=== PATIENT | male | born 1960 | race Caucasian/White ===

== ENCOUNTER 2018-04-20 17:54 | Emergency (ER) | payer OTHER ==
[2018-04-20 18:01] VITALS: BP 120/69; PULSE 66; TEMP 98; BMI 28.8
[2018-04-20] MEDS ORDERED: KETOROLAC TROMETHAMINE 60 MG/2 ML VIAL IM ONE (18:45)
--- NOTE | 2018-04-20 18:50 | PDOC ---
History of Present Illness - General Chief Complaint: Injury Stated Complaint: BACK AND NECK PAIN Time Seen by Provider: 04/20/18 18:18 History Source: Patient Exam Limitations: No Limitations - History of Present Illness Initial Comments: 04/20/18 19:41 Patient is a 57-year-old male who presents emergency department today after slipping and falling in a gas station. Patient states that he landed on his right shoulder. He states that the pain is mostly in the shoulder. He also has pain in his low back. Denies numbness and tingling to the extremities, weakness , fevers, bladder bowel incontinence, saddle anesthesia.. Past History - Travel Traveled outside of the country in the last 30 days: No Close contact w/someone who was outside of country & ill: No - Past Medical History Allergies/Adverse Reactions: Allergies Allergy/AdvReac Type Severity Reaction Status Date / Time No Known Allergies Allergy Verified 04/20/18 18:02 Home Medications: Ambulatory Orders Ibuprofen 800 mg PO TID #30 tablet 04/20/18 COPD: No HTN: Yes Other medical history: GOUT - Surgical History Abdominal Surgery: Yes Appendectomy: Yes - Suicide/Smoking/Psychosocial Hx Smoking History: Never smoked Review of Systems - Review of Systems Able to Perform ROS?: Yes Comments:: 04/20/18 19:42 CONSTITUTIONAL: Absent: fever, chills, diaphoresis, generalized weakness, malaise, loss of appetite HEENT: Absent: rhinorrhea, nasal congestion, throat pain, throat swelling, difficulty swallowing, mouth swelling, ear pain, eye pain, visual Changes CARDIOVASCULAR: Absent: chest pain, loss of consciousness, palpitations, irregular heart rate, peripheral edema RESPIRATORY: Absent: cough, shortness of breath, dyspnea with exertion, orthopnea, wheezing, stridor, hemoptysis GASTROINTESTINAL: Absent: abdominal pain, abdominal distension, nausea, vomiting, diarrhea, constipation, melena, hematochezia GENITOURINARY: Absent: dysuria, frequency, urgency, hesitancy, hematuria, flank pain, genital pain MUSCULOSKELETAL: Absent: myalgia, arthralgia, joint swelling SKIN: Absent: rash, itching, pallor HEMATOLOGIC/IMMUNOLOGIC: Absent: easy bleeding, easy bruising, lymphadenopathy, frequent infections ENDOCRINE: Absent: unexplained weight gain, unexplained weight loss, heat intolerance, cold intolerance NEUROLOGIC: Absent: headache, focal weakness or paresthesias, dizziness, unsteady gait, seizure, mental status changes, bladder or bowel incontinence PSYCHIATRIC: Absent: anxiety, depression, suicidal or homicidal ideation, hallucinations. Is the patient limited Tristanian proficient: No *Physical Exam - Vital Signs Last Vital Signs Temp Pulse Resp BP Pulse Ox 98 F 66 18 120/69 99 04/20/18 17:58 04/20/18 17:58 04/20/18 17:58 04/20/18 17:58 04/20/18 17:58 - Physical Exam Comments: 04/20/18 19:42 GENERAL: Well developed, well nourished. Awake and alert. No acute distress. HEENT: Normocephalic, atraumatic. PERRLA, EOMI. No conjunctival pallor. Sclera are non- icteric. Moist mucous membranes. Oropharynx is clear. NECK: Supple. Full ROM. No JVD. Carotid pulses 2+ and symmetric, without bruits. No thyromegaly. No lymphadenopathy. CARDIOVASCULAR: Regular rate and rhythm. No murmurs, rubs, or gallops. Distal pulses are 2+ and symmetric. PULMONARY: No evidence of respiratory distress. Lungs clear to auscultation bilaterally. No wheezing, rales or rhonchi. ABDOMINAL: Soft. Non-tender. Non-distended. No rebound or guarding. No organomegaly. Normoactive bowel sounds. MUSCULOSKELETAL Normal range of motion at all joints. No bony deformities or tenderness. No CVA tenderness. EXTREMITIES: No cyanosis. No clubbing. No edema. No calf tenderness. SKIN: Warm and dry. Normal capillary refill. No rashes. No jaundice. NEUROLOGICAL: Alert, awake, appropriate. Cranial nerves 2-12 intact. No deficits to light touch and temperature in face, upper extremities and lower extremities. No motor deficits in the in face, upper extremities and lower extremities. Normoreflexic in the upper and lower extremities. Normal speech. Toes are down- going bilaterally. Gait is normal without ataxia. PSYCHIATRIC: Cooperative. Good eye contact. Appropriate mood and affect. Medical Decision Making - Medical Decision Making 04/20/18 19:42 Toradol given for pain X-ray of R shoulder is negative for fracture Repeat R shoulder exam without pain, full ROM Back pain resolved *DC/Admit/Observation/Transfer Diagnosis at time of Disposition: Shoulder pain, right Qualifiers: Chronicity: acute Qualified Code(s): M25.511 - Pain in right shoulder Low back pain Qualifiers: Chronicity: acute Back pain laterality: right Sciatica presence: without sciatica Qualified Code(s): M54.5 - Low back pain - Discharge Dispostion Disposition: HOME Condition at time of disposition: Stable Decision to Admit order: No - Referrals Referrals: Jaciel Lechuga MD [Primary Care Provider] - Lonny Martínez MD [Staff Physician] - - Patient Instructions Printed Discharge Instructions: DI for Shoulder Pain, DI for Low Back Pain Additional Instructions: You fell today. Your x-ray is negative for fracture You have shoulder pain and back pain Take Motrin 800mg every 8 hours as needed for pain You may apply ice to the area to help with pain If your symptoms do not get better in one week, follow up with orthopedics. A referral has been provided Return to the ED for any new or worsening symptoms Te eune jaqueline. Ruby rajwinder X son negativos por fractura Usted tiene dolor en el hombro y dolor de espalda [place] Motrin 800 mg cada 8 horas segn sea necesario para el dolor Puede aplicar hielo en el chas para ayudar con el dolor Si ruby sntomas no mejoran en francoise semana, magnolia un seguimiento con ortopedia. Francoise referencia vogel sido proporcionada Regrese al servicio de urgencias por cualquier sntoma nuevo o que empeore Print Language: [place] CITIZEN - Post Discharge Activity
[2018-04-20] MEDS ORDERED: KETOROLAC TROMETHAMINE 60 MG/2 ML VIAL ONE ×2 (18:55→18:57)
== END 2018-04-20 19:50 | disposition home or self-care (01) ==
LOC: JERFT 17:54
PROC: 3E0233Z Introduction of Anti-inflammatory into Muscle, Percutaneous Approach (ICD-10-PCS; principal; 2018-04-20)
DX: M25.511 Pain in right shoulder (principal); M54.5 Low back pain; W01.0XXA Fall on same level from slipping, tripping and stumbling without subsequent striking against object, initial encounter; Y93.89 Activity, other specified; Y92.524 Gas station as the place of occurrence of the external cause; Y99.8 Other external cause status
CPT/HCPCS: 73030-TC-RT-FY; 96372; 99281-25

== ENCOUNTER 2019-01-28 16:49 | Inpatient (IN) | payer OTHER ==
--- NOTE | 2019-01-28 17:06 | PDOC ---
Rapid Medical Evaluation Time Seen by Provider: 01/28/19 17:01 Medical Evaluation: Allergies Allergy/AdvReac Type Severity Reaction Status Date / Time No Known Allergies Allergy Verified 04/20/18 18:02 01/28/19 17:01 Patient c/o: left testicle pain, on bactrim since sunday but pain continues, no fver or urinary complaints, denies hx hernia or prostate d/o Patient on brief exam: tender enlarged left testicle and warm to touch, no penile discharge, uncircumsized Patient ordered for: septic w/u and u/s Patient to proceed to the ED Discharge Disposition - Diagnosis Testicle pain, Sepsis, Acute epididymitis, Orchitis of both testicles - Discharge Dispostion Condition at time of disposition: Stable - Referrals - Patient Instructions - Post Discharge Activity
[2019-01-28] MEDS ORDERED: ACETAMINOPHEN 1000 MG/100 ML VIAL (NON FORMULARY) IVPB ONE (17:09)
[2019-01-28] MEDS ORDERED: SODIUM CHLORIDE 1,000 ML IV STA (17:09)
[2019-01-28] MEDS ORDERED: ACETAMINOPHEN INJECTION 100 ML IVPB ONE (18:29)
[2019-01-28 19:16] LABS: VENOUS PC02 42.3 mmHg (41-51); VENOUS PH 7.41 (7.31-7.41)
[2019-01-28 19:48] LABS: BASO % 0.2 % (0-2.0); EOS % 0.1 % (0-4.5); HEMATOCRIT 38.6 % (35.4-49); LYMPH % 8.7 % (8-40); MCH 30.3 pg (25.7-33.7); MCHC 33.8 g/dl (32.0-35.9); MEAN CELL VOLUME 89.7 fl (80-96); MEAN PLT VOLUME 8.8 fl (7.5-11.1); MONO % 8.7 % (3.8-10.2); NEUT % 82.3 % (42.8-82.8); PLATELET COUNT 200 K/MM3 (134-434); RBC 4.31 M/mm3 (4.00-5.60); RDW 12.2 % (11.9-15.9); WHITE BLOOD COUNT 10.6 K/mm3 (4.0-10.0)
[2019-01-28 19:58] LABS: INR 1.1 (0.83-1.09)
[2019-01-28 20:00] LABS: ACTIVATED PTT 28.2 SECONDS (25.2-36.5); ALBUMIN 3.9 g/dl (3.4-5.0); BILIRUBIN,TOTAL 0.4 mg/dL (0.2-1); BLOOD UREA NITROGEN 22.4 mg/dL (7-18); CREATININE 1.8 mg/dL (0.55-1.3); POTASSIUM 3.8 mmol/L (3.5-5.1); TOT PROT 7.6 g/dl (6.4-8.2)
--- NOTE | 2019-01-28 20:03 | PDOC ---
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 On Sunday he had an appointment with his urologist and they examined his prostate and determined that his testicle is still inflamed and he is having fever. They gave him an injection in the buttock region "bc he had an enlarged testicle" but he does not know specifically what they gave him. The patient came to the hospital today bc he has the pain again and now he has a fever and feels thirsty. The patient states he feels nauseous but denies emesis. Denies dysuria, frequency, or urgency. PCP: Dr. Lechuga Urologist: Dr. Bland PSH: Appendectomy Social Hx: Denies smoking, drinking, or other substance usage. Allergies: NKA, NKDA Past History - Past Medical History Allergies/Adverse Reactions: Allergies Allergy/AdvReac Type Severity Reaction Status Date / Time No Known Allergies Allergy Verified 04/20/18 18:02 Home Medications: Ambulatory Orders NK [No Known Home Medication] 01/28/19 COPD: No HTN: Yes - Surgical History Abdominal Surgery: Yes Appendectomy: Yes - Immunization History Immunization Up to Date: No - Suicide/Smoking/Psychosocial Hx Smoking History: Never smoked Have you smoked in the past 12 months: No Information on smoking cessation initiated: No Hx Alcohol Use: No Drug/Substance Use Hx: No Review of Systems - Review of Systems Able to Perform ROS?: Yes Comments:: CONSTITUTIONAL: Present: Fever, chills Absent: no fatigue EYES: Absent: visual changes ENT: Absent: ear pain, no sore throat CARDIOVASCULAR: Absent: chest pain, no palpitations RESPIRATORY: Absent: cough, no SOB GI: Present: Abdominal pain, nausea Absent: no vomiting, no constipation, no diarrhea GENITOURINARY: Present: Testicular pain Absent: dysuria, no frequency, no hematuria MUSKULOSKELETAL: Absent: back pain, no arthralgia, no myalgia SKIN: Absent: rash NEURO: Absent: headache *Physical Exam - Vital Signs Last Vital Signs Temp Pulse Resp BP Pulse Ox 102.4 F H 104 H 16 128/68 97 01/28/19 17:02 01/28/19 17:02 01/28/19 17:02 01/28/19 17:02 01/28/19 17:02 - Physical Exam Comments: GENERAL: Well-appearing, well-nourished. No apparent distress. HEENT: Normocephalic, atraumatic. PERRL, EOM intact. CARDIOVASCULAR: Tachycardic rate. Normal S1, S2. Regular rhythm. PULMONARY: No evidence of respiratory distress. Lungs clear to auscultation bilaterally. No wheezing, rales or rhonchi. ABDOMEN: Soft, non-distended, non-tender. EXTREMITIES: Normal ROM in all four extremities. No gross deformities. SKIN: Warm, dry. No rash NEUROLOGICAL: No focal neurological deficits. Male Genitalia: positive: testicular tenderness (left), testicular mass, epididymus tender, other (+ Prehn sign. There is significant pain relief upon elevation of the testicle. ). negative: normal prostate (tender), discharge, inguinal hernia, hernia, CVAT, hematuria Rectal Exam: positive: normal exam, normal rectal tone, other (There is no crepitus or darkening of the perineum. ). negative: decreased tone, hemorrhoids ED Treatment Course - LABORATORY CBC & Chemistry Diagram: 01/28/19 18:25 01/28/19 18:25 - ADDITIONAL ORDERS Additional order review: Laboratory Results 01/28/19 01/28/19 01/28/19 18:55 18:55 18:25 PT with INR INR PTT (Actin FS) VBG pH 7.41 POC VBG pCO2 42.3 POC VBG pO2 21.0 L VBG HCO3 26.0 VBG O2 Sat (Pieter) 30.4 L VBG Base Excess 1.5 Sodium 137 Potassium 3.8 Chloride 103 Carbon Dioxide 27 Anion Gap 8 BUN 22.4 H Creatinine 1.8 H Est GFR (CKD-EPI)AfAm 47.37 Est GFR (CKD-EPI)NonAf 40.87 Random Glucose 114 H Lactic Acid 1.3 Calcium 9.0 Total Bilirubin 0.4 AST 14 L ALT 25 Alkaline Phosphatase 71 Total Protein 7.6 Albumin 3.9 01/28/19 18:25 PT with INR 13.00 INR 1.10 H PTT (Actin FS) 28.2 VBG pH POC VBG pCO2 POC VBG pO2 VBG HCO3 VBG O2 Sat (Pieter) VBG Base Excess Sodium Potassium Chloride Carbon Dioxide Anion Gap BUN Creatinine Est GFR (CKD-EPI)AfAm Est GFR (CKD-EPI)NonAf Random Glucose Lactic Acid Calcium Total Bilirubin AST ALT Alkaline Phosphatase Total Protein Albumin 01/28/19 18:25 RBC 4.31 MCV 89.7 MCHC 33.8 RDW 12.2 MPV 8.8 Neutrophils % 82.3 Lymphocytes % 8.7 Monocytes % 8.7 Eosinophils % 0.1 Basophils % 0.2 - RADIOLOGY Radiograph Interpretation: Testicular US: Scrotal ultrasound Clinical information: left testicular pain and edema The exam was performed utilizing grayscale and Doppler sonography. The testes appear unremarkable in overall size and echogenicity. The testes bilaterally demonstrate increased vascularity on Doppler imaging suggestive of acute orchitis. The left epididymis demonstrates increased vascularity as well as demonstrating mild diffuse enlargement suggestive of acute epididymitis. The right epididymis demonstrates no discrete abnormality. No Doppler evidence of testicular torsion, sensitivity 85%. Small to moderate bilateral hydroceles are seen. The left-sided hydrocele demonstrate several thickened internal septations. Bilateral cutaneous and subcutaneous edema is noted. Impression: Acute bilateral orchitis. Acute left epididymitis. Small to moderate bilateral hydroceles. Thickened internal septations are seen within the left- sided hydrocele. Bilateral cutaneous and subcutaneous edema. - Medications Given in the ED: ED Medications Discontinued Medications Generic Name Dose Route Start Last Admin Trade Name Freq PRN Reason Stop Dose Admin Acetaminophen 1,000 mg 01/28/19 17:09 01/28/19 19:20 Ofirmev Injection - IVPB 01/28/19 17:10 1,000 mg ONCE ONE Administration Sodium Chloride 1,000 mls @ 1,000 mls/hr 01/28/19 17:09 01/28/19 19:19 Normal Saline - IV 01/28/19 18:08 1,000 mls/hr ASDIR STA Administration Medical Decision Making - Medical Decision Making 58 yo m w a hx of HTN, HCL, gout and arthritis presents to the ER via private auto for testicular pain. On Sunday he had an appointment with his urologist and they examined his prostate and determined that his testicle is still inflamed and he is having fever. They gave him an injection in the buttock region "bc he had an enlarged testicle" but he does not know specifically what they gave him. The patient came to the hospital today bc he has the pain again and now he has a fever and feels thirsty. The patient states he feels nauseous but denies emesis. Denies dysuria, frequency, or urgency. Vital Signs Temp Pulse Resp BP Pulse Ox 102.4 F H 104 H 16 128/68 97 01/28/19 17:02 01/28/19 17:02 01/28/19 17:02 01/28/19 17:02 01/28/19 17:02 DDx IBNLT: UTI/Pylo, epidydymitis, prostatitis, orchitis Plan: Labs, Urine, analgesia, Testicular US, Urology consult, re-assess. + Prehn sign - significant relief upon testicular elevation. - Patient likely has a bad case of epidydymitis/epidydymo-orchitis. I spoke with Dr. Bland and he is concerned that the patient might have a testicular abscess and wants the patient admitted to the hospital for further care and management of this patient's testicular issues. Dr. Bland says that the medications he was given in the office are not appropriately working and the patient needs to come into the hospital to have his testicular infection taken care of. Testicular US shows bilateral orchitis as well as left sided epidydymitis. - Vanc/Zosyn started for empiric coverage. - Morphine given for pain control. Spoke with hospitalist who accepted patient for admission. *DC/Admit/Observation/Transfer Diagnosis at time of Disposition: Testicle pain, Sepsis, Acute epididymitis, Orchitis of both testicles - Discharge Dispostion Condition at time of disposition: Stable Decision to Admit order: Yes - Referrals - Patient Instructions - Post Discharge Activity
[2019-01-28 20:27] LABS: EPI CELLS 0.5 /HPF (0-5/HPF); HYALINE CASTS 1 /lpf (0-8); URINE APPEARANCE CLEAR; URINE BACTERIA 3.9 /hpf (NEGATIVE); URINE BILIRUBIN NEGATIVE (NEGATIVE); URINE COLOR YELLOW; URINE GLUCOSE (UA) NEGATIVE (NEGATIVE); URINE KETONE TRACE (NEGATIVE); URINE LEUK ESTERASE TRACE (NEGATIVE); URINE NITRITE NEGATIVE (NEGATIVE); URINE PROTEIN NEGATIVE (NEGATIVE); URINE RBC 1 /hpf (0-4); URINE UROBILINOGEN 0.2 mg/dL (0.2-1.0); URINE WBC 1 /hpf (0-5)
[2019-01-28] MEDS ORDERED: SODIUM CHLORIDE 0.9% 500 ML INFUS.BAG IV ONE (20:43)
[2019-01-28] MEDS ORDERED: morphine CARPU-JECT 4 MG/1 ML DISP.SYRIN IVPUSH ONE (21:39)
[2019-01-28] MEDS ORDERED: VANCOMYCIN 1,000 MG in DEXTROSE 5%-WATER - 250 ML IVPB ONE (21:39)
[2019-01-28] MEDS ORDERED: PIPERACILLIN/TAZOB 4.5 GM 4.5 GM in DEXTROSE 5%-WATER 100 ML IVPB ONE (21:40)
--- NOTE | 2019-01-28 22:28 | PDOC ---
Documentation entered by Sage Guo SCRIBE, acting as scribe for Jamila Ireland DO. Jamila Ireland DO: This documentation has been prepared by the Brant lawson Daniel, SCRIBE, under my direction and personally reviewed by me in its entirety. I confirm that the documentation accurately reflects all work , treatment, procedures, and medical decision making performed by me. Attending Attestation - Resident Resident Name: Darren Goldstein - ED Attending Attestation I have performed the following: I have examined & evaluated the patient, The case was reviewed & discussed with the resident, I agree w/resident's findings & plan - HPI HPI: 01/28/19 20:40 The patient is a 58 year old male with a past medical history of HTN, HLD, gout , and arthritis here today for evaluation of testicular pain. The patient reports that he saw his urologist last sunday (01/24/19) and received bactrim for an infection of his testicles and also received a shot but is unable to recall what shot it was. He is here today for testicular pain and fever. Patient denies headache, lightheadedness. Denies chills. Denies chest pain, shortness of breath. Denies nausea, vomiting, diarrhea, abdominal pain. Allergies: NKA PCP: Jaciel Lechuga Urologist: Jazzy Bland - Physicial Exam PE: 01/28/19 20:40 Agree with the resident's physical exam. - Medical Decision Making 01/28/19 22:26 58-year-old male with left testicular pain and swelling Ultrasound consistent with bilateral orchitis and epididymitis Case discussed with urology by the emergency department resident Fredis and vancomycin initiated in the emergency department Patient admitted to medical service Urology will see the patient in the morning He is currently well-appearing, alert, morphine given for pain
[2019-01-28] MEDS ORDERED: PIPERACILLIN/TAZOB 4.5 GM 4.5 GM/100 ML BAG IVPB ONE (22:29)
[2019-01-28] MEDS ORDERED: morphine SULFATE 4 MG/ML VIAL ONE (22:29)
[2019-01-28] MEDS ORDERED: VANCOMYCIN 1 GRAM (PRE-DOCKED) 1,000 MG/250 ML BAG IVPB ONE (22:29)
--- NOTE | 2019-01-28 23:50 | HP ---
Admitting History and Physical - Primary Care Physician PCP: Toño Tripp - Admission Chief Complaint: Dislodged Stanley Catheter, AMS - Smoking History Smoking history: Never smoked Have you smoked in the past 12 months: No - Alcohol/Substance Use Hx Alcohol Use: No Home Medications - Allergies Allergies/Adverse Reactions: Allergies Allergy/AdvReac Type Severity Reaction Status Date / Time No Known Allergies Allergy Verified 04/20/18 18:02 - Home Medications Home Medications: Ambulatory Orders NK [No Known Home Medication] 01/28/19 Physical Examination Vital Signs: Vital Signs Temperature 102.4 F H 01/28/19 17:02 Pulse Rate 104 H 01/28/19 17:02 Respiratory Rate 16 01/28/19 17:02 Blood Pressure 128/68 01/28/19 17:02 O2 Sat by Pulse Oximetry (%) 97 01/28/19 17:02 Labs: CBC, BMP 01/28/19 18:25 01/28/19 18:25
--- NOTE | 2019-01-28 23:57 | PN ---
Progress Note (short form) - Note Progress Note: UROLOGY NOTE. CONSULT DICTATED.
[2019-01-29] MEDS ORDERED: MORPHINE SULFATE 2 MG/ML VIAL IVPUSH PRN (00:04)
--- NOTE | 2019-01-29 00:05 | HP ---
Admitting History and Physical - Primary Care Physician PCP: Jaciel Lechuga S - Admission Chief Complaint: Left testicular pain and fever History of Present Illness: 58 year old M with no past medical history present to ED for evaluation of Left testicular pain and fevers x 1 week. Mr. Portillo reports symptoms initially started out as mild discomfort in left testicle for which he saw urology. He was treated with BActrim, but continued to have progression of symptoms to include, worsening pain and swelling to left testicle, and fevers. He denies dysuria, incontinence, malodorous or discolored urine. He followed up with his urologist today due to worsening sx and was given " an injection" in the office. Pt returned home and continued to experience fevers, so he decided to present to ED for evaluation. In ED vitals: Temp 102.4, HR 104, BP 128/68, RR 16, O2 sat 97% WBC 10.9, Scr 1.8, trace ketones on urinalysis pt underwent scrotal US which revealed b/l Orchitis and left Epididymitis, small to moderate hydroceles, b/l SC edema. 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 Other Social History: Born in [facility] Home Medications - Allergies Allergies/Adverse Reactions: Allergies Allergy/AdvReac Type Severity Reaction Status Date / Time No Known Allergies Allergy Verified 04/20/18 18:02 - Home Medications Home Medications: Ambulatory Orders NK [No Known Home Medication] 01/28/19 Family Disease History - Family Disease History Family Disease History: Other: Father (alive(96) well), Mother (alive (80) HTN) , Brother (alive (60) HTN), Sister (alive (45) DMII) Review of Systems - Review of Systems Constitutional: reports: Fever Eyes: reports: No Symptoms HENT: reports: No Symptoms Neck: reports: No Symptoms Cardiovascular: reports: No Symptoms Respiratory: reports: No Symptoms Gastrointestinal: reports: No Symptoms Genitourinary: reports: Pain, Testicular Mass, Testicular Pain, Testicular Swelling Breasts: reports: No Symptoms Reported Musculoskeletal: reports: No Symptoms Integumentary: reports: No Symptoms Neurological: reports: No Symptoms Endocrine: reports: No Symptoms Hematology/Lymphatic: reports: No Symptoms Psychiatric: reports: No Symptoms Physical Examination Vital Signs: Vital Signs Temperature 100.0 F H 01/28/19 23:51 Pulse Rate 87 01/28/19 23:51 Respiratory Rate 16 01/28/19 17:02 Blood Pressure 94/59 L 01/28/19 23:51 O2 Sat by Pulse Oximetry (%) 98 01/28/19 23:51 Constitutional: Yes: Well Nourished, No Distress, Calm, Other (poor dentition) Eyes: Yes: Conjunctiva Clear, PERRL HENT: Yes: Atraumatic, Normocephalic Neck: Yes: Supple Cardiovascular: Yes: Regular Rate and Rhythm Respiratory: Yes: Regular, CTA Bilaterally Gastrointestinal: Yes: Normal Bowel Sounds, Soft, Abdomen, Obese ...Rectal Exam: Yes: WNL Renal/: Yes: Scrotal Edema (Left, + epidydimal tenderness, palpable abscess) Musculoskeletal: Yes: WNL Extremities: Yes: WNL Edema: No Peripheral Pulses WNL: Yes Peripheral Pulses: Left Radial: 2+, Right Radial: 2+, Left Doralis Pedis: 2+, Right Dorsalis Pedis: 2+ Integumentary: Yes: WNL Neurological: Yes: Alert, Oriented ...Motor Strength: WNL Psychiatric: Yes: Alert, Oriented Labs: CBC, BMP 01/28/19 18:25 01/28/19 18:25 Imaging - Results Ultrasound: Report Reviewed (Scrotal ultrasound 01/28/2019 Impression: Acute bilateral orchitis. Acute left epididymitis. Small to moderate bilateral hydroceles. Thickened internal septations are seen within the left- sided hydrocele. Bilateral cutaneous and subcutaneous edema. Reported By: Se Bains MD 01/28/19 [id number]) Problem List - Problems (1) Prophylactic measure Assessment/Plan: Ambulate as tolerated OOB to chair senna/colace bowel regimen Code(s): Z29.9 - ENCOUNTER FOR PROPHYLACTIC MEASURES, UNSPECIFIED (2) Acute epididymitis Assessment/Plan: pt dosed vanco/zosyn in ED. Start rocephin and doxycycline in AM trend WBC and temp curve IV hydration APAP PRN fever Morphine PRN acute pain f/u results of chlamydia/gonorrhea/trich/ HIV and urine/blood cultures consider ID consult in AM Code(s): N45.1 - EPIDIDYMITIS Assessment/Plan Code status: Full Visit type - Emergency Visit Emergency Visit: Yes ED Registration Date: 01/28/19 Care time: The patient presented to the Emergency Department on the above date and was hospitalized for further evaluation of their emergent condition. - New Patient This patient is new to me today: Yes Date on this admission: 01/29/19 - Critical Care Critical Care patient: No
[2019-01-29] MEDS ORDERED: DOCUSATE SODIUM 100 MG CAPSULE (FP) PO PRN (00:10)
[2019-01-29] MEDS ORDERED: SENNOSIDES 8.6MG TABLET (FP) PO PRN (00:10)
[2019-01-29 01:25] LABS: EPI CELLS 0.2 /HPF (0-5/HPF); HYALINE CASTS 1 /lpf (0-8); URINE APPEARANCE CLEAR; URINE BILIRUBIN NEGATIVE (NEGATIVE); URINE COLOR YELLOW; URINE GLUCOSE (UA) NEGATIVE (NEGATIVE); URINE KETONE NEGATIVE (NEGATIVE); URINE LEUK ESTERASE TRACE (NEGATIVE); URINE NITRITE NEGATIVE (NEGATIVE); URINE PROTEIN NEGATIVE (NEGATIVE); URINE RBC 0 /hpf (0-4); URINE UROBILINOGEN 0.2 mg/dL (0.2-1.0); URINE WBC 1 /hpf (0-5)
[2019-01-29] MEDS: LACTATED RINGERS SOLUTION 1,000 ML IV SCH ×2 (02:02→14:38)
[2019-01-29] MEDS ORDERED: ACETAMINOPHEN 325 MG TABLET (FP) ONE (04:44)
[2019-01-29] MEDS: ACETAMINOPHEN 325 MG TABLET (FP) PO PRN ×3 (04:55→23:33)
--- NOTE | 2019-01-29 08:05 | EKG ---
Test Reason : Blood Pressure : / mmHG Vent. Rate : 100 BPM Atrial Rate : 100 BPM P-R Int : 140 ms QRS Dur : 098 ms QT Int : 342 ms P-R-T Axes : 059 -07 036 degrees QTc Int : 441 ms SINUS RHYTHM WITH PREMATURE ATRIAL COMPLEXES INCOMPLETE RIGHT BUNDLE BRANCH BLOCK BORDERLINE ECG WHEN COMPARED WITH ECG OF 27-JUL-2010 12:21, PREMATURE ATRIAL COMPLEXES ARE NOW PRESENT VENT. RATE HAS INCREASED BY 41 BPM Confirmed by CHANG ZAVALA MD ([id number]) on 01/29/2019 8:05:32 AM Referred By: Confirmed By:CHANG ZAVALA MD
[2019-01-29] MEDS ORDERED: CEFTRIAXONE 1 GM/50 ML BAG ONE (09:04)
[2019-01-29] MEDS: DOXYCYCLINE HYCLATE 100 MG CAPSULE PO SCH ×2 (09:50→17:44)
[2019-01-29] MEDS ORDERED: CEFTRIAXONE 1 GM in DEXTROSE 5%-WATER - 50 ML IVPB SCH (10:00)
[2019-01-29 12:59] VITALS: BMI 23.4
--- NOTE | 2019-01-29 15:14 | PN ---
Progress Note, Physician Chief Complaint: L testicular pain Acute Epididymitis History of Present Illness: Previous notes and events reviewed awake and alert NAD complain of L testicular swelling denies hemeturia or dysuria - Current Medication List Current Medications: Active Medications Acetaminophen (Tylenol -) 650 mg PO Q6H PRN PRN Reason: FEVER Last Admin: 01/29/19 13:25 Dose: 650 mg Docusate Sodium (Colace -) 100 mg PO Q8H PRN PRN Reason: CONSTIPATION Doxycycline Hyclate (Vibramycin -) 100 mg PO BID@1000,1800 [facility] Last Admin: 01/29/19 09:50 Dose: 100 mg Lactated Ringer's (Lactated Ringers Solution) 1,000 mls @ 42 mls/hr IV ASDIR [facility] Last Admin: 01/29/19 14:38 Dose: 42 mls/hr Ceftriaxone Sodium 1 gm/ (Dextrose) 50 mls @ 100 mls/hr IVPB DAILY [facility] Last Admin: 01/29/19 09:49 Dose: 100 mls/hr Morphine Sulfate (Morphine Sulfate) 1 mg IVPUSH Q8H PRN PRN Reason: PAIN LEVEL 7 - 10 Stop: 01/30/19 00:00 Senna (Senna -) 2 tab PO HS PRN PRN Reason: CONSTIPATION - Objective Vital Signs: Vital Signs Temperature 99.8 F H 01/29/19 12:46 Pulse Rate 90 01/29/19 12:46 Respiratory Rate 18 01/29/19 12:46 Blood Pressure 104/52 L 01/29/19 12:46 O2 Sat by Pulse Oximetry (%) 96 01/29/19 12:46 Constitutional: Yes: No Distress, Calm Eyes: Yes: Conjunctiva Clear HENT: Yes: Atraumatic Cardiovascular: Yes: Regular Rate and Rhythm Respiratory: Yes: Regular, CTA Bilaterally Gastrointestinal: Yes: Normal Bowel Sounds, Soft Genitourinary: Yes: Scrotal Edema Musculoskeletal: Yes: WNL Extremities: Yes: WNL Edema: No Neurological: Yes: Alert, Oriented Psychiatric: Yes: Alert, Oriented Labs: CBC, BMP 01/28/19 18:25 01/28/19 18:25 INR, PTT INR 1.10 (0.83-1.09) H 01/28/19 18:25 - ....Imaging Ultrasound: Report Reviewed Problem List - Problems (1) Acute epididymitis Assessment/Plan: -Scrotal US shows acute L epididimytis, acute B/L orchitis, small to moderate b/ l hydroceles, b/l cutaneous and subcutaneous edema -ID on board -wbc 10.6 -low grade fevers -BC and UC pending -Zosyn and dozyclycline -pending HIV, C/G, RPR results Code(s): N45.1 - EPIDIDYMITIS (2) Testicle pain Assessment/Plan: -pain control Code(s): N50.819 - TESTICULAR PAIN, UNSPECIFIED (3) Orchitis of both testicles Assessment/Plan: -Scrotal US shows acute L epididimytis, acute B/L orchitis, small to moderate b/ l hydroceles, b/l cutaneous and subcutaneous edema -ID on board -wbc 10.6 -low grade fevers -BC and UC pending -Zosyn and dozyclycline -pending HIV, C/G, RPR results -urology consult Code(s): N45.2 - ORCHITIS
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
[2019-01-29] MEDS ORDERED: DEXTROSE 5%-WATER - 50 ML IVPB ONE (17:40)
[2019-01-29] MEDS ORDERED: PIPERACILLIN/TAZOBACTAM 3.375 GM VIAL IVPB ONE (17:40)
[2019-01-29] MEDS: PIPERACILLIN/TAZOB 3.375 GM 3.375 GM in DEXTROSE 5%-WATER - 50 ML IVPB SCH (17:44)
--- NOTE | 2019-01-30 00:01 | CONS ---
DATE OF CONSULTATION: DATE OF DICTATION: 01/29/2019 HISTORY OF PRESENT ILLNESS: The patient is a 68-year-old male followed in my office, was seen last week with tenderness and swelling in the left testes. This was secondary to benign prostatic hypertrophy. Patient was given 1 g Rocephin and given a prescription for Bactrim DS 1 p.o. b.i.d. for 10 days. Due to the pain and swelling, patient came to the emergency room complaining of pain. In the emergency room, his temperature was 102.4, his heart rate was 104, blood pressure 122/68, O2 saturation was 97%, white count was 10.9. Urine revealed a large amount of WBCs, RBCs, and ketones. A ultrasound revealed bilateral orchitis with left epididymitis and bilateral reactive hydroceles. The patient underwent cultures which are still pending. His latest urinalysis reveals white blood cells and red blood cells, negative nitrates, serology workup was nonreactive. PHYSICAL EXAMINATION: The patient has a swollen, tender left testicle, also some tenderness in the right. There was scrotal edema as well as hyperemia of the scrotal skin. His prostate is 2+, smooth, benign, and nontender. Extremities revealed full range of motion with no cyanosis, clubbing, or edema. IMPRESSION: At present is left epididymal orchitis. RECOMMENDATION: Would recommend ID consultation for proper antibiotic administration. Would also recommend scrotal elevation as well as icepacks to the area. Patient has been evaluated by infectious disease and the patient has been commenced on Rocephin and doxycycline. Will follow patient as an outpatient to resolve his benign prostatic hypertrophy. Radha [id number]
[2019-01-30] MEDS ORDERED: PIPERACILLIN/TAZOBACTAM 3.375 GM VIAL IVPB ONE ×3 (01:20→17:24)
[2019-01-30] MEDS ORDERED: DEXTROSE 5%-WATER - 50 ML IVPB ONE ×3 (01:21→17:25)
[2019-01-30] MEDS: PIPERACILLIN/TAZOB 3.375 GM 3.375 GM in DEXTROSE 5%-WATER - 50 ML IVPB SCH ×3 (01:35→18:14)
[2019-01-30] MEDS: LACTATED RINGERS SOLUTION 1,000 ML IV SCH (06:22)
[2019-01-30 06:27] LABS: BASO % 0.3 % (0-2.0); EOS % 0.3 % (0-4.5); HEMATOCRIT 36.3 % (35.4-49); HEMOGLOBIN 12.2 GM/dL (11.7-16.9); LYMPH % 14.2 % (8-40); MCH 29.9 pg (25.7-33.7); MCHC 33.6 g/dl (32.0-35.9); MEAN CELL VOLUME 88.8 fl (80-96); MEAN PLT VOLUME 8.4 fl (7.5-11.1); MONO % 7.1 % (3.8-10.2); NEUT % 78.1 % (42.8-82.8); PLATELET COUNT 178 K/MM3 (134-434); RBC 4.09 M/mm3 (4.00-5.60); RDW 12.7 % (11.9-15.9); WHITE BLOOD COUNT 12.7 K/mm3 (4.0-10.0)
[2019-01-30 06:44] LABS: INR 1.38 (0.83-1.09); PROTHROMBIN TIME (PATIENT) 16.3 SEC (9.7-13.0)
[2019-01-30 06:47] LABS: ACTIVATED PTT 28.9 SECONDS (25.2-36.5)
[2019-01-30 06:50] LABS: BILIRUBIN,TOTAL 0.8 mg/dL (0.2-1); CALCIUM 8.5 mg/dL (8.5-10.1); CREATININE 1.4 mg/dL (0.55-1.3); MAGNESIUM 2.2 mg/dL (1.8-2.4); PHOSPHOROUS 2.3 mg/dL (2.5-4.9); POTASSIUM 3.8 mmol/L (3.5-5.1); TOT PROT 6.3 g/dl (6.4-8.2)
[2019-01-30] MEDS ORDERED: PT OWN MED DRAWER 7, Y5N ONE (09:57)
[2019-01-30] MEDS: DOXYCYCLINE HYCLATE 100 MG CAPSULE PO SCH ×2 (10:09→18:13)
--- NOTE | 2019-01-30 11:01 | PN ---
Progress Note, Physician Chief Complaint: L testicular pain Acute Epididymitis History of Present Illness: Previous notes and events reviewed awake and alert NAD complain of L testicular swelling and pain denies hemeturia or dysuria WBC noted to increase IV ABT - Current Medication List Current Medications: Active Medications Acetaminophen (Tylenol -) 650 mg PO Q6H PRN PRN Reason: FEVER Last Admin: 01/29/19 23:33 Dose: 650 mg Docusate Sodium (Colace -) 100 mg PO Q8H PRN PRN Reason: CONSTIPATION Doxycycline Hyclate (Vibramycin -) 100 mg PO BID@1000,1800 [facility] Last Admin: 01/30/19 10:09 Dose: 100 mg Lactated Ringer's (Lactated Ringers Solution) 1,000 mls @ 42 mls/hr IV ASDIR [facility] Last Admin: 01/30/19 06:22 Dose: 42 mls/hr Piperacillin Sod/Tazobactam (Sod 3.375 gm/ Dextrose) 50 mls @ 100 mls/hr IVPB Q8H-IV [facility]; Protocol Last Admin: 01/30/19 10:09 Dose: 100 mls/hr Senna (Senna -) 2 tab PO HS PRN PRN Reason: CONSTIPATION - Objective Vital Signs: Vital Signs Temperature 98.8 F 01/30/19 06:00 Pulse Rate 112 H 01/30/19 06:00 Respiratory Rate 18 01/30/19 06:00 Blood Pressure 116/78 01/30/19 06:00 O2 Sat by Pulse Oximetry (%) 97 01/29/19 21:00 Constitutional: Yes: No Distress, Calm Eyes: Yes: Conjunctiva Clear HENT: Yes: Atraumatic Cardiovascular: Yes: Regular Rate and Rhythm Respiratory: Yes: Regular, CTA Bilaterally Gastrointestinal: Yes: Normal Bowel Sounds, Soft Genitourinary: Yes: Scrotal Edema Musculoskeletal: Yes: WNL Extremities: Yes: WNL Edema: No Neurological: Yes: Alert, Oriented Psychiatric: Yes: Alert, Oriented Labs: CBC, BMP 01/30/19 06:10 01/30/19 06:10 INR, PTT INR 1.38 (0.83-1.09) H 01/30/19 06:10 Problem List - Problems (1) Acute epididymitis Assessment/Plan: -Scrotal US shows acute L epididimytis, acute B/L orchitis, small to moderate b/ l hydroceles, b/l cutaneous and subcutaneous edema -ID on board -wbc 12.7 -afebrile -BC and UC neg -Zosyn and dozyclycline -pending C/G results -HIV and RPR neg Code(s): N45.1 - EPIDIDYMITIS (2) Testicle pain Assessment/Plan: -pain control -scrotal elevation Code(s): N50.819 - TESTICULAR PAIN, UNSPECIFIED (3) Orchitis of both testicles Assessment/Plan: -Scrotal US shows acute L epididimytis, acute B/L orchitis, small to moderate b/ l hydroceles, b/l cutaneous and subcutaneous edema -ID on board -wbc 12.7 -low grade fevers -BC and UC neg -Zosyn and dozyclycline -pending C/G results -HIV and RPR neg -urology on board Code(s): N45.2 - ORCHITIS Assessment/Plan see problem list dvt ppx
--- NOTE | 2019-01-30 14:11 | PN ---
Progress Note (short form) - Note Progress Note: frustrated not feeling better still with scrotal pain had fever last night Vital Signs Period Temp Pulse Resp BP Sys/Head Pulse Ox Last 24 Hr 98.2 F-101.2 F 78-116 17-20 101-116/50-78 97 cor-rrr lungs clear abd soft,nt +tender, warm left testicular swelling ext no edema CBC, BMP 01/30/19 06:10 01/30/19 06:10 Microbiology 01/29/19 01:10 Urine - Urine Clean Catch Urine Culture - Final NO GROWTH OBTAINED 01/28/19 18:25 Blood - Peripheral Venous Blood Culture - Preliminary NO GROWTH OBTAINED AFTER 24 HOURS, INCUBATION TO CONTINUE FOR 4 DAYS. 01/28/19 18:30 Blood - Peripheral Venous Blood Culture - Preliminary NO GROWTH OBTAINED AFTER 24 HOURS, INCUBATION TO CONTINUE FOR 4 DAYS. Current Medications Acetaminophen (Tylenol -) 650 mg PO Q6H PRN PRN Reason: FEVER Last Admin: 01/29/19 23:33 Dose: 650 mg Docusate Sodium (Colace -) 100 mg PO Q8H PRN PRN Reason: CONSTIPATION Doxycycline Hyclate (Vibramycin -) 100 mg PO BID@1000,1800 [facility] Last Admin: 01/30/19 10:09 Dose: 100 mg Lactated Ringer's (Lactated Ringers Solution) 1,000 mls @ 42 mls/hr IV ASDIR [facility] Last Admin: 01/30/19 06:22 Dose: 42 mls/hr Piperacillin Sod/Tazobactam (Sod 3.375 gm/ Dextrose) 50 mls @ 100 mls/hr IVPB Q8H-IV [facility]; Protocol Last Admin: 01/30/19 10:09 Dose: 100 mls/hr Senna (Senna -) 2 tab PO HS PRN PRN Reason: CONSTIPATION HIV negative a/p left epididymitis- would continue zosyn and doxycycline f/u urine NAAT caitie-improved Problem List - Problems (1) Acute epididymitis Code(s): N45.1 - EPIDIDYMITIS (2) CAITIE (acute kidney injury) Code(s): N17.9 - ACUTE KIDNEY FAILURE, UNSPECIFIED
[2019-01-31] MEDS ORDERED: PIPERACILLIN/TAZOBACTAM 3.375 GM VIAL IVPB ONE ×4 (01:46→22:27)
[2019-01-31] MEDS ORDERED: DEXTROSE 5%-WATER - 50 ML IVPB ONE ×4 (01:47→22:27)
[2019-01-31] MEDS: PIPERACILLIN/TAZOB 3.375 GM 3.375 GM in DEXTROSE 5%-WATER - 50 ML IVPB SCH ×3 (01:59→17:35)
[2019-01-31] MEDS: LACTATED RINGERS SOLUTION 1,000 ML IV SCH ×2 (02:01→11:19)
[2019-01-31 07:38] LABS: HEMATOCRIT 32.4 % (35.4-49); MCH 30.3 pg (25.7-33.7); MCHC 33.9 g/dl (32.0-35.9); MEAN CELL VOLUME 89.3 fl (80-96); MEAN PLT VOLUME 8.8 fl (7.5-11.1); RBC 3.63 M/mm3 (4.00-5.60); RDW 12.5 % (11.9-15.9); WHITE BLOOD COUNT 8.2 K/mm3 (4.0-10.0)
[2019-01-31 07:42] LABS: ALBUMIN 2.8 g/dl (3.4-5.0); BILIRUBIN,TOTAL 0.5 mg/dL (0.2-1); BLOOD UREA NITROGEN 9.8 mg/dL (7-18); CALCIUM 8.4 mg/dL (8.5-10.1); CREATININE 1.4 mg/dL (0.55-1.3); POTASSIUM 3.7 mmol/L (3.5-5.1); TOT PROT 6.1 g/dl (6.4-8.2)
[2019-01-31 08:09] LABS: PLATELET COUNT 192 K/MM3 (134-434)
[2019-01-31] MEDS: DOXYCYCLINE HYCLATE 100 MG CAPSULE PO SCH ×2 (09:28→17:35)
--- NOTE | 2019-01-31 13:44 | PN ---
Progress Note (short form) - Note Progress Note: feels much better smiling today no fevers less pain and discomfort Vital Signs Period Temp Pulse Resp BP Sys/Head Pulse Ox Last 24 Hr 97.8 F-99.4 F 65-86 18-20 86-112/43-84 100 cor-rrr lungs decreased bs at bases abd soft,nt ext less induration, less tenderness left testicle CBC, BMP 01/31/19 06:02 01/31/19 06:02 Laboratory Tests 01/29/19 01/29/19 01/29/19 06:37 08:55 09:30 RPR Titer Nonreactive C. trachomatis (SHAYE) Negative HIV 1&2 Antibody Screen Negative HIV P24 Antigen Negative N.gonorrhoeae DNA (SHAYE) Negative T. vaginalis (SHAYE) Negative Microbiology 01/28/19 18:25 Blood - Peripheral Venous Blood Culture - Preliminary NO GROWTH OBTAINED AFTER 48 HOURS, INCUBATION TO CONTINUE FOR 3 DAYS. 01/28/19 18:30 Blood - Peripheral Venous Blood Culture - Preliminary NO GROWTH OBTAINED AFTER 48 HOURS, INCUBATION TO CONTINUE FOR 3 DAYS. 01/29/19 01:10 Urine - Urine Clean Catch Urine Culture - Final NO GROWTH OBTAINED a/p left epididymitis- would continue zosyn day #3-improving switch to po levaquin 500 mg daily in am for another 7 days if he continues to improve and is afebrile d/c doxycycline caitie-improved Problem List - Problems (1) Acute epididymitis Code(s): N45.1 - EPIDIDYMITIS (2) CAITIE (acute kidney injury) Code(s): N17.9 - ACUTE KIDNEY FAILURE, UNSPECIFIED
--- NOTE | 2019-01-31 17:14 | PN ---
Progress Note (short form) - Note Progress Note: UROLOGY NOTE 58 Y/O Male patient with history of HT,HLD, Gout and BPH developed left Epidid- orchitis admitted from ER for IV antibiotic, pain improved today and less swelling. O/E slight tender left testicle WBC FROM 12.7 TO 8.2 BUN 9.8 S.Creat 1.4 he is on Zosyn. Plan: patient can be discharged tomorrow with oral abx for 10 days and RTC next week.
[2019-01-31] MEDS: ACETAMINOPHEN 325 MG TABLET (FP) PO PRN (17:39)
--- NOTE | 2019-01-31 18:17 | DS ---
Physical Examination Vital Signs: Vital Signs Temperature 98.5 F 01/31/19 15:12 Pulse Rate 72 01/31/19 15:12 Respiratory Rate 884 H 01/31/19 15:12 Blood Pressure 105/73 01/31/19 15:12 O2 Sat by Pulse Oximetry (%) 98 01/31/19 09:25 Findings/Remarks: 58 year old M with no past medical history present to ED for evaluation of Left testicular pain and fevers x 1 week. Mr. Portillo reports symptoms initially started out as mild discomfort in left testicle for which he saw urology. He was treated with BActrim, but continued to have progression of symptoms to include, worsening pain and swelling to left testicle, and fevers. He denies dysuria, incontinence, malodorous or discolored urine. He followed up with his urologist today due to worsening sx and was given " an injection" in the office. Pt returned home and continued to experience fevers, so he decided to present to ED for evaluation. Constitutional: Yes: Well Nourished, No Distress, Calm Cardiovascular: Yes: Regular Rate and Rhythm Respiratory: Yes: Regular Gastrointestinal: Yes: Normal Bowel Sounds, Soft, Abdomen, Obese Renal/: Yes: Scrotal Edema Musculoskeletal: Yes: WNL Extremities: Yes: WNL Edema: No Peripheral Pulses WNL: Yes Neurological: Yes: Alert, Oriented Psychiatric: Yes: Alert, Oriented Labs: CBC, BMP 01/31/19 06:02 01/31/19 06:02 Discharge Summary Reason For Visit: PAIN IN TESTICLE,SEPSIS Current Active Problems CAITIE (acute kidney injury) (Acute) Acute epididymitis (Acute) Orchitis of both testicles (Acute) Prophylactic measure (Acute) Sepsis (Acute) Testicle pain (Acute) Hospital Course: Laboratory Last Values WBC 8.2 K/mm3 (4.0-10.0) 01/31/19 06:02 RBC 3.63 M/mm3 (4.00-5.60) L 01/31/19 06:02 Hgb 11.0 GM/dL (11.7-16.9) L 01/31/19 06:02 Hct 32.4 % (35.4-49) L 01/31/19 06:02 MCV 89.3 fl (80-96) 01/31/19 06:02 MCH 30.3 pg (25.7-33.7) 01/31/19 06:02 MCHC 33.9 g/dl (32.0-35.9) 01/31/19 06:02 RDW 12.5 % (11.9-15.9) 01/31/19 06:02 Plt Count 192 K/MM3 (134-434) 01/31/19 06:02 MPV 8.8 fl (7.5-11.1) 01/31/19 06:02 Absolute Neuts (auto) 9.9 K/mm3 (1.5-8.0) H 01/30/19 06:10 Neutrophils % 78.1 % (42.8-82.8) 01/30/19 06:10 Lymphocytes % 14.2 % (8-40) D 01/30/19 06:10 Monocytes % 7.1 % (3.8-10.2) 01/30/19 06:10 Eosinophils % 0.3 % (0-4.5) D 01/30/19 06:10 Basophils % 0.3 % (0-2.0) 01/30/19 06:10 Nucleated RBC % 0 % (0-0) 01/30/19 06:10 PT with INR 16.30 SEC (9.7-13.0) H 01/30/19 06:10 INR 1.38 (0.83-1.09) H 01/30/19 06:10 PTT (Actin FS) 28.9 SECONDS (25.2-36.5) 01/30/19 06:10 VBG pH 7.41 (7.31-7.41) 01/28/19 18:55 POC VBG pCO2 42.3 mmHg (41-51) 01/28/19 18:55 POC VBG pO2 21.0 mmHg (30-40) L 01/28/19 18:55 VBG HCO3 26.0 mmol/L (23-29) 01/28/19 18:55 VBG O2 Sat (Pieter) 30.4 % (70-80) L 01/28/19 18:55 VBG Base Excess 1.5 meq/l (-2-2) 01/28/19 18:55 Sodium 140 mmol/L (136-145) 01/31/19 06:02 Potassium 3.7 mmol/L (3.5-5.1) 01/31/19 06:02 Chloride 106 mmol/L (98-107) 01/31/19 06:02 Carbon Dioxide 27 mmol/L (21-32) 01/31/19 06:02 Anion Gap 7 MMOL/L (8-16) L 01/31/19 06:02 BUN 9.8 mg/dL (7-18) 01/31/19 06:02 Creatinine 1.4 mg/dL (0.55-1.3) H 01/31/19 06:02 Est GFR (CKD-EPI)AfAm 64.18 01/31/19 06:02 Est GFR (CKD-EPI)NonAf 55.38 01/31/19 06:02 Random Glucose 82 mg/dL (74-106) 01/31/19 06:02 Lactic Acid 1.3 mmol/L (0.4-2.0) 01/28/19 18:55 Calcium 8.4 mg/dL (8.5-10.1) L 01/31/19 06:02 Phosphorus 2.3 mg/dL (2.5-4.9) L 01/30/19 06:10 Magnesium 2.2 mg/dL (1.8-2.4) 01/30/19 06:10 Total Bilirubin 0.5 mg/dL (0.2-1) 01/31/19 06:02 AST 16 U/L (15-37) 01/31/19 06:02 ALT 30 U/L (13-61) 01/31/19 06:02 Alkaline Phosphatase 66 U/L (45-117) 01/31/19 06:02 Total Protein 6.1 g/dl (6.4-8.2) L 01/31/19 06:02 Albumin 2.8 g/dl (3.4-5.0) L 01/31/19 06:02 Urine Color Yellow 01/29/19 01:10 Urine Appearance Clear 01/29/19 01:10 Urine pH 5.0 (5.0-8.0) 01/29/19 01:10 Ur Specific [place] 1.019 (1.010-1.035) 01/29/19 01:10 Urine Protein Negative (NEGATIVE) 01/29/19 01:10 Urine Glucose (UA) Negative (NEGATIVE) 01/29/19 01:10 Urine Ketones Negative (NEGATIVE) 01/29/19 01:10 Urine Blood Negative (NEGATIVE) 01/29/19 01:10 Urine Nitrite Negative (NEGATIVE) 01/29/19 01:10 Urine Bilirubin Negative (NEGATIVE) 01/29/19 01:10 Urine Urobilinogen 0.2 mg/dL (0.2-1.0) 01/29/19 01:10 Ur Leukocyte Esterase Trace (NEGATIVE) 01/29/19 01:10 Urine WBC (Auto) 1 /hpf (0-5) 01/29/19 01:10 Urine RBC (Auto) 0 /hpf (0-4) 01/29/19 01:10 Urine Casts (Auto) 1 /lpf (0-8) 01/29/19 01:10 U Epithel Cells (Auto) 0.2 /HPF (0-5/HPF) 01/29/19 01:10 Urine Bacteria (Auto) 1.0 /hpf (NEGATIVE) 01/29/19 01:10 RPR Titer Nonreactive (NONREACTIVE) 01/29/19 08:55 C. trachomatis (SHAYE) Negative (Negative) 01/29/19 09:30 HIV 1&2 Antibody Screen Negative 01/29/19 06:37 HIV P24 Antigen Negative 01/29/19 06:37 N.gonorrhoeae DNA (SHAYE) Negative (Negative) 01/29/19 09:30 T. vaginalis (SHAYE) Negative (Negative) 01/29/19 09:30 Microbiology 01/28/19 18:25 Blood - Peripheral Venous Blood Culture - Preliminary NO GROWTH OBTAINED AFTER 48 HOURS, INCUBATION TO CONTINUE FOR 3 DAYS. 01/28/19 18:30 Blood - Peripheral Venous Blood Culture - Preliminary NO GROWTH OBTAINED AFTER 48 HOURS, INCUBATION TO CONTINUE FOR 3 DAYS. 01/29/19 01:10 Urine - Urine Clean Catch Urine Culture - Final NO GROWTH OBTAINED Vital Signs Temp 98.5 F 01/31/19 15:12 Pulse 72 01/31/19 15:12 Resp 884 H 01/31/19 15:12 BP 105/73 01/31/19 15:12 Pulse Ox 98 01/31/19 09:25 Intake & Output 01/30/19 01/31/19 01/31/19 23:59 11:59 23:59 Intake Total 562 1014 480 Output Total 1200 Balance -638 1014 480 Intake: IV 462 504 Lactated Ringers Solution 462 504 1,000 ml @ 42 mls/hr IV ASDIR [facility] Rx#:[id number] IVPB 100 50 Oral 460 480 Output: Urine 1200 Void 1200 Other: Voiding Method Toilet Toilet Toilet # Unmeasured Voids Void 1 1 1 Bowel Movement No No Yes Condition: Stable - Instructions Diet, Activity, Other Instructions: Levaquin 500 mg once a day for 7 days Referrals: Delano Epps S.A. [Other Staff,non-medical] - Disposition: HOME - Home Medications Comprehensive Discharge Medication List: Ambulatory Orders Meloxicam 7.5 mg PO DAILY 01/29/19 Olmesartan/Amlodipin/Hcthiazid [Tribenzor 40-10-12.5 mg Tablet] 1 each PO DAILY 01/29/19 Sulfamethoxazole/Trimethoprim [Bactrim Ds -] 1 tab PO BID 01/29/19 Tamsulosin HCl [Flomax] 0.4 mg PO DAILY 01/29/19
[2019-02-01] MEDS: PIPERACILLIN/TAZOB 3.375 GM 3.375 GM in DEXTROSE 5%-WATER - 50 ML IVPB SCH ×2 (01:38→09:13)
[2019-02-01] MEDS: LACTATED RINGERS SOLUTION 1,000 ML IV SCH (04:55)
[2019-02-01] MEDS: ACETAMINOPHEN 325 MG TABLET (FP) PO PRN (05:41)
[2019-02-01] MEDS ORDERED: PIPERACILLIN/TAZOBACTAM 3.375 GM VIAL IVPB ONE (08:54)
[2019-02-01] MEDS ORDERED: DEXTROSE 5%-WATER - 50 ML IVPB ONE (08:55)
[2019-02-01] MEDS: DOXYCYCLINE HYCLATE 100 MG CAPSULE PO SCH (09:15)
--- NOTE | 2019-02-01 09:52 | DS ---
Physical Examination Vital Signs: Vital Signs Temperature 98.8 F 02/01/19 06:00 Pulse Rate 77 02/01/19 06:00 Respiratory Rate 18 02/01/19 06:00 Blood Pressure 99/71 02/01/19 06:00 O2 Sat by Pulse Oximetry (%) 98 02/01/19 09:00 Findings/Remarks: feels well wants to go home Cardiovascular: Yes: Regular Rate and Rhythm Respiratory: Yes: Regular, CTA Bilaterally Gastrointestinal: Yes: Normal Bowel Sounds, Soft. No: Tenderness Renal/: Yes: Other (no teticular tenderness) Labs: CBC, BMP 01/31/19 06:02 01/31/19 06:02 Discharge Summary Reason For Visit: PAIN IN TESTICLE,SEPSIS Current Active Problems CAITIE (acute kidney injury) (Acute) Acute epididymitis (Acute) Orchitis of both testicles (Acute) Prophylactic measure (Acute) Sepsis (Acute) Testicle pain (Acute) Hospital Course: 58 year old M with no past medical history present to ED for evaluation of Left testicular pain and fevers x 1 week. Mr. Portillo reports symptoms initially started out as mild discomfort in left testicle for which he saw urology. He was treated with BActrim, but continued to have progression of symptoms to include, worsening pain and swelling to left testicle, and fevers. He denies dysuria, incontinence, malodorous or discolored urine. left epididymitis- would continue zosyn day #3-improving switch to po levaquin 500 mg daily in am for another 7 days Condition: Stable - Instructions Diet, Activity, Other Instructions: Levaquin 500 mg once a day for 7 days Referrals: Delano Epps S.A. [Other Staff,non-medical] - Disposition: HOME - Home Medications Comprehensive Discharge Medication List: Ambulatory Orders Meloxicam 7.5 mg PO DAILY 01/29/19 Tamsulosin HCl [Flomax] 0.4 mg PO DAILY 01/29/19 Acetaminophen [Tylenol .Regular Strength -] 650 mg PO Q6H PRN tablet 01/31/19 levoFLOXacin [Levaquin -] 500 mg PO DAILY #7 tablet 01/31/19
[2019-02-01 11:14] VITALS: BP 101/71; PULSE 70; TEMP 98.4
== END 2019-02-01 11:01 | disposition home or self-care (01) | DRG 872 ==
LOC: JER 16:49 → JERBED 21:41 → J5S 01-29 11:47
PROVIDERS: ADMIT Family Medicine; ATTEND Family Medicine
DX: A41.9 Sepsis, unspecified organism (principal); N17.9 Acute kidney failure, unspecified; N45.2 Orchitis; N45.1 Epididymitis; N43.3 Hydrocele, unspecified; I10 Essential (primary) hypertension; E78.5 Hyperlipidemia, unspecified; N40.0 Benign prostatic hyperplasia without lower urinary tract symptoms
CPT/HCPCS: 36415; 76870-TC; 80053; 81003; 82803; 83605; 83735; 84100; 85025; 85027; 85610; 85730; 86593; 87040; 87086; 87186; 87389; 87491; 87591; 87661; 93005; 93010; 99285-25; J0131; J7030

== ENCOUNTER 2019-07-13 16:33 | Emergency (ER) | payer OTHER ==
[2019-07-13 16:38] VITALS: BP 124/87; PULSE 94; TEMP 98.3; BMI 30.7
[2019-07-13] MEDS ORDERED: KETOROLAC TROMETHAMINE 30 MG/1 ML VIAL IM ONE (17:45)
[2019-07-13] MEDS ORDERED: KETOROLAC TROMETHAMINE 30 MG/1 ML VIAL ONE (17:49)
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
== END 2019-07-13 18:01 | disposition home or self-care (01) ==
LOC: JERFT 16:33
PROC: 3E0233Z Introduction of Anti-inflammatory into Muscle, Percutaneous Approach (ICD-10-PCS; principal; 2019-07-13)
DX: M54.5 Low back pain (principal); M54.9 Dorsalgia, unspecified; V43.52XA Car driver injured in collision with other type car in traffic accident, initial encounter; Y93.89 Activity, other specified; Y92.410 Unspecified street and highway as the place of occurrence of the external cause; K92.9 Disease of digestive system, unspecified; I10 Essential (primary) hypertension
CPT/HCPCS: 99281-25

== ENCOUNTER 2020-08-25 02:48 | Inpatient (IN) | payer OTHER ==
[2020-08-25 03:41] LABS: VENOUS BASE EXCESS -1.3 mmol/L (-2-2); VENOUS O2 SATURATION 22.3 % (70-80); VENOUS PCO2 46.5 mmHg (38-52); VENOUS PH 7.345 (7.310-7.410)
[2020-08-25 04:01] LABS: BASO % 0.3 % (0-2.0); EOS % 0.3 % (0-4.5); HEMATOCRIT 47.9 % (35.4-49); HEMOGLOBIN 16.1 GM/dL (11.7-16.9); LYMPH % 13.9 % (8-40); MCH 30.3 pg (25.7-33.7); MCHC 33.6 g/dl (32.0-35.9); MEAN CELL VOLUME 90.2 fl (80-96); MEAN PLT VOLUME 10.2 fl (7.5-11.1); MONO % 9.8 % (3.8-10.2); NEUT % 75.7 % (42.8-82.8); PLATELET COUNT 151 K/MM3 (134-434); RBC 5.31 M/mm3 (4.00-5.60); RDW 13.7 % (11.9-15.9)
[2020-08-25 04:17] LABS: INR 1.03 (0.83-1.09); PROTHROMBIN TIME (PATIENT) 12.5 SEC (9.7-13.0)
[2020-08-25 04:21] LABS: CHLORIDE 105 mmol/L (98-107); POTASSIUM 3.7 mmol/L (3.5-5.1); SODIUM 139 mmol/L (136-145)
[2020-08-25 04:23] LABS: ALBUMIN 4.1 g/dl (3.4-5.0); ANION GAP 8 MMOL/L (8-16); CALCIUM 8.4 mg/dL (8.5-10.1); CO2 27 mmol/L (21-32)
[2020-08-25 04:24] LABS: BLOOD UREA NITROGEN 16.4 mg/dL (7-18); GLUCOSE,RANDOM 117 mg/dL (74-106)
[2020-08-25 04:27] LABS: BILIRUBIN,DIRECT 0.2 mg/dL (0.0-0.2); CREATININE 1.5 mg/dL (0.55-1.3); SGOT/AST 21 U/L (15-37); SGPT/ALT 28 U/L (13-61)
[2020-08-25 04:28] LABS: BILIRUBIN,TOTAL 0.5 mg/dL (0.2-1); TOT PROT 7.5 g/dl (6.4-8.2)
[2020-08-25 04:29] LABS: ALK PHOS 67 U/L (45-117)
[2020-08-25 04:34] LABS: PH,URINE 5.5 (5.0-8.0); URINE APPEARANCE CLEAR; URINE BILIRUBIN NEGATIVE (NEGATIVE); URINE COLOR YELLOW; URINE GLUCOSE (UA) NEGATIVE (NEGATIVE); URINE KETONE NEGATIVE (NEGATIVE); URINE LEUK ESTERASE NEGATIVE (NEGATIVE); URINE NITRITE NEGATIVE (NEGATIVE); URINE PROTEIN NEGATIVE (NEGATIVE); URINE UROBILINOGEN 0.2 mg/dL (0.2-1.0)
[2020-08-25 05:23] LABS: MAGNESIUM 1.8 mg/dL (1.8-2.4)
[2020-08-25 05:27] LABS: PHOSPHOROUS 2.8 mg/dL (2.5-4.9)
[2020-08-25] MEDS ORDERED: ACETAMINOPHEN 1000 MG/100 ML VIAL (NON FORMULARY) IVPB ONE (06:05)
[2020-08-25] MEDS ORDERED: ACETAMINOPHEN INJECTION 100 ML IVPB ONE (06:40)
[2020-08-25] MEDS ORDERED: LACTATED RINGERS SOLUTION 1,000 ML/1,000 ML INFUS.BAG IV STA (07:02)
[2020-08-25] MEDS ORDERED: CEFTRIAXONE 2,000 MG in DEXTROSE 5%-WATER - 50 ML IVPB ONE (07:40)
[2020-08-25] MEDS ORDERED: LACTATED RINGERS SOLUTION 1,000 ML/1,000 ML INFUS.BAG IV ONE (08:15)
[2020-08-25] MEDS ORDERED: CEFTRIAXONE 2 GM/100 ML BAG IVPB ONE (08:20)
[2020-08-25] MEDS ORDERED: SODIUM CHLORIDE 1,000 ML IV SCH (12:15)
[2020-08-25 16:53] VITALS: BMI 30.9
[2020-08-25] MEDS: ASPIRIN 81 MG CHEWABLE TABLETS PO SCH (17:41)
[2020-08-25] MEDS: HEPARIN NA (PORCINE) 5,000 UNITS/ML 1ML VIAL SQ SCH (17:42)
[2020-08-26] MEDS: HEPARIN NA (PORCINE) 5,000 UNITS/ML 1ML VIAL SQ SCH ×3 (05:44→16:59)
[2020-08-26 07:05] LABS: COCAINE, UR NEGATIVE ng/ml (CUTOFF=300); OPIATES, URI NEGATIVE ng/ml (CUTOFF=300); PHENCYCLIDINE,URINE NEGATIVE ng/ml (CUTOFF=25)
[2020-08-26 07:22] LABS: METHADONE, UR NEGATIVE ng/ml (CUTOFF=300); URINE AMPHETAMINES NEGATIVE ng/ml (CUTOFF=500); URINE BARBITURATES NEGATIVE ng/ml (CUTOFF=200); URINE BENZODIAZEPINES NEGATIVE ng/ml (CUTOFF=200)
[2020-08-26 08:45] LABS: HEMOGLOBIN 14.7 GM/dL (11.7-16.9); MCH 30.3 pg (25.7-33.7); MCHC 34.2 g/dl (32.0-35.9); MEAN CELL VOLUME 88.6 fl (80-96); MEAN PLT VOLUME 9.8 fl (7.5-11.1); PLATELET COUNT 147 K/MM3 (134-434); RBC 4.85 M/mm3 (4.00-5.60); RDW 13.7 % (11.9-15.9); WHITE BLOOD COUNT 6.2 K/mm3 (4.0-10.0)
[2020-08-26 09:13] LABS: CALCIUM 8.4 mg/dL (8.5-10.1)
[2020-08-26 09:14] LABS: ALBUMIN 3.4 g/dl (3.4-5.0); BLOOD UREA NITROGEN 16.2 mg/dL (7-18)
[2020-08-26 09:17] LABS: CREATININE 1.6 mg/dL (0.55-1.3); PHOSPHOROUS 3.2 mg/dL (2.5-4.9)
[2020-08-26 09:18] LABS: BILIRUBIN,TOTAL 0.6 mg/dL (0.2-1); TOT PROT 6.8 g/dl (6.4-8.2)
[2020-08-26] MEDS ORDERED: PT OWN MED DRAWER 7, Y5N ONE (10:19)
[2020-08-26] MEDS ORDERED: cefTRIAXone SODIUM 1 GM VIAL ONE (10:19)
[2020-08-26] MEDS ORDERED: DEXTROSE 5%-WATER - 50 ML IVPB ONE (10:20)
[2020-08-26] MEDS: ACETAMINOPHEN 325 MG TABLET (FP) PO PRN ×2 (11:02→17:20)
[2020-08-26] MEDS: AZITHROMYCIN IVPB 250 MG in DEXTROSE 5%-WATER - 250 ML IVPB SCH (11:03)
[2020-08-26] MEDS: CEFTRIAXONE 1 GM in DEXTROSE 5%-WATER - 50 ML IVPB SCH (11:03)
[2020-08-26] MEDS: ASPIRIN 81 MG CHEWABLE TABLETS PO SCH (11:03)
[2020-08-27] MEDS: HEPARIN NA (PORCINE) 5,000 UNITS/ML 1ML VIAL SQ SCH ×3 (01:21→17:24)
[2020-08-27] MEDS: ACETAMINOPHEN 325 MG TABLET (FP) PO PRN ×2 (03:13→10:21)
[2020-08-27 07:21] LABS: BASO % 0.2 % (0-2.0); EOS % 0.1 % (0-4.5); HEMATOCRIT 43.6 % (35.4-49); LYMPH % 23.8 % (8-40); MCH 30.4 pg (25.7-33.7); MCHC 34.3 g/dl (32.0-35.9); MEAN CELL VOLUME 88.4 fl (80-96); MEAN PLT VOLUME 10.2 fl (7.5-11.1); MONO % 7.4 % (3.8-10.2); NEUT % 68.5 % (42.8-82.8); PLATELET COUNT 143 K/MM3 (134-434); RBC 4.93 M/mm3 (4.00-5.60); RDW 13.5 % (11.9-15.9)
[2020-08-27 07:43] LABS: ALBUMIN 3.5 g/dl (3.4-5.0); BLOOD UREA NITROGEN 14.8 mg/dL (7-18); CALCIUM 8.4 mg/dL (8.5-10.1); MAGNESIUM 1.9 mg/dL (1.8-2.4)
[2020-08-27 07:44] LABS: POTASSIUM 3.3 mmol/L (3.5-5.1)
[2020-08-27 07:46] LABS: CREATININE 1.4 mg/dL (0.55-1.3)
[2020-08-27 07:48] LABS: BILIRUBIN,TOTAL 0.8 mg/dL (0.2-1)
[2020-08-27] MEDS ORDERED: POTASSIUM CHLORIDE TABS 20 MEQ TABLET.ER (FP) PO ONE (08:54)
[2020-08-27] MEDS ORDERED: CHOLECALCIFEROL (VIT D3) 400 UNIT (10 MCG) TABLET PO SCH (10:00)
[2020-08-27] MEDS ORDERED: ZINC SULFATE 220 MG CAPSULE (FP) PO SCH (10:00)
[2020-08-27] MEDS ORDERED: ASCORBIC ACID 250 MG TABLET (FP) PO SCH (10:00)
[2020-08-27] MEDS ORDERED: cefTRIAXone SODIUM 1 GM VIAL ONE (10:10)
[2020-08-27] MEDS ORDERED: DEXTROSE 5%-WATER - 50 ML IVPB ONE (10:11)
[2020-08-27] MEDS: AZITHROMYCIN IVPB 250 MG in DEXTROSE 5%-WATER - 250 ML IVPB SCH (10:19)
[2020-08-27] MEDS: CEFTRIAXONE 1 GM in DEXTROSE 5%-WATER - 50 ML IVPB SCH (10:20)
[2020-08-27] MEDS: ASPIRIN 81 MG CHEWABLE TABLETS PO SCH (10:22)
[2020-08-27] MEDS ORDERED: PANTOPRAZOLE 40 MG TABLET PO ONE (13:31)
[2020-08-27 15:30] VITALS: BP 102/64; PULSE 80; TEMP 97.8
== END 2020-08-27 17:38 | disposition home or self-care (01) | DRG 177 ==
LOC: JER 02:48 → JERBED 10:16 → J4W 13:33
PROVIDERS: ATTEND Nurse Practitioner Family
DX: U07.1 COVID-19 (principal); J12.82 Pneumonia due to coronavirus disease 2019; I48.92 Unspecified atrial flutter; N17.9 Acute kidney failure, unspecified; I48.91 Unspecified atrial fibrillation; M10.9 Gout, unspecified; E66.9 Obesity, unspecified; Z68.31 Body mass index [BMI] 31.0-31.9, adult; I13.10 Hypertensive heart and chronic kidney disease without heart failure, with stage 1 through stage 4 chronic kidney disease, or unspecified chronic kidney disease; N18.9 Chronic kidney disease, unspecified; E78.5 Hyperlipidemia, unspecified; R50.9 Fever, unspecified; E86.0 Dehydration
CPT/HCPCS: 36415; 70450-TC; 71045-TC-FY; 72125-TC; 80053; 80307; 81003; 82248; 82550; 82553; 82728; 82803; 83036; 83605; 83615; 83735; 84100; 84443; 84484; 85025; 85027; 85379; 85610; 85730; 86140; 86850; 86900; 86901; 87040; 87086; 87804; 93005; 93010; 93306-TC; 97116-GP; 97161-GP; 99285-25; C9803; J0131; J1644; U0003

== ENCOUNTER 2020-08-28 12:20 | Emergency (ER) | payer OTHER ==
[2020-08-28 12:35] VITALS: BMI 26.6
[2020-08-28] MEDS ORDERED: BAMLANIVIMAB 700 MG in SODIUM CHLORIDE 180 ML IVPB ONE (12:40)
[2020-08-28 16:02] VITALS: BP 126/77; PULSE 84; TEMP 98.4
== END 2020-08-28 15:40 | disposition home or self-care (01) ==
LOC: JCOVINFU 12:20 → JER 12:20 → JCOVINFU 15:40
DX: U07.1 COVID-19 (principal)
CPT/HCPCS: 99284-25; M0239; Q0239

== ENCOUNTER 2020-08-31 21:07 | Inpatient (IN) | payer OTHER ==
[2020-08-31 21:14] VITALS: BMI 30.4
[2020-08-31] MEDS ORDERED: ACETAMINOPHEN 1000 MG/100 ML VIAL (NON FORMULARY) IVPB ONE (22:17)
[2020-08-31] MEDS ORDERED: ACETAMINOPHEN INJECTION 100 ML IVPB ONE (22:52)
[2020-08-31 23:41] LABS: BASO % 0.1 % (0-2.0); HEMATOCRIT 44.1 % (35.4-49); HEMOGLOBIN 14.9 GM/dL (11.7-16.9); LYMPH % 6.8 % (8-40); MCH 30.2 pg (25.7-33.7); MCHC 33.9 g/dl (32.0-35.9); MEAN CELL VOLUME 89.1 fl (80-96); NEUT % 90.1 % (42.8-82.8); RBC 4.95 M/mm3 (4.00-5.60); RDW 13.8 % (11.9-15.9); WHITE BLOOD COUNT 7.6 K/mm3 (4.0-10.0)
[2020-08-31 23:43] LABS: VENOUS BASE EXCESS -3.5 mmol/L (-2-2); VENOUS PCO2 47.7 mmHg (38-52); VENOUS PH 7.304 (7.310-7.410)
[2020-08-31 23:46] LABS: EPI CELLS 33 /uL (0-25.1); HYALINE CASTS 6 /uL (0-3.1); PH,URINE 5.5 (5.0-8.0); URINE APPEARANCE CLOUDY; URINE BACTERIA 36 /uL (0-1359); URINE BILIRUBIN NEGATIVE (NEGATIVE); URINE COLOR DK YELLOW; URINE GLUCOSE (UA) NEGATIVE (NEGATIVE); URINE KETONE TRACE (NEGATIVE); URINE LEUK ESTERASE NEGATIVE (NEGATIVE); URINE NITRITE NEGATIVE (NEGATIVE); URINE PROTEIN 3+ (NEGATIVE); URINE RBC 20 /uL (0-23.9); URINE WBC 21 /uL (0-25.8)
[2020-09-01] LABS: CHLORIDE 104 mmol/L (98-107); POTASSIUM 3.9 mmol/L (3.5-5.1); SODIUM 139 mmol/L (136-145)
[2020-09-01 00:03] LABS: CALCIUM 8.6 mg/dL (8.5-10.1)
[2020-09-01 00:04] LABS: ALBUMIN 3.3 g/dl (3.4-5.0); ANION GAP 9 MMOL/L (8-16); CO2 27 mmol/L (21-32); GLUCOSE,RANDOM 139 mg/dL (74-106)
[2020-09-01 00:07] LABS: BILIRUBIN,DIRECT 0.3 mg/dL (0.0-0.2); CREATININE 1.6 mg/dL (0.55-1.3); SGOT/AST 68 U/L (15-37); SGPT/ALT 70 U/L (13-61)
[2020-09-01 00:08] LABS: BILIRUBIN,TOTAL 0.9 mg/dL (0.2-1); LDH 350 U/L (87-246); TOT PROT 7.4 g/dl (6.4-8.2)
[2020-09-01 00:09] LABS: ALK PHOS 44 U/L (45-117)
[2020-09-01 00:35] LABS: INR 1.24 (0.83-1.09); PROTHROMBIN TIME (PATIENT) 15.2 SEC (9.7-13.0)
[2020-09-01] MEDS ORDERED: DEXAMETHASONE SOD PHOSPHATE 4 MG/1 ML VIAL IVPUSH ONE (01:53)
[2020-09-01 02:35] LABS: PLATELET ESTIMATE DECREASED
[2020-09-01 02:36] LABS: PLATELET COUNT 123 K/MM3 (134-434)
[2020-09-01] MEDS: SODIUM CHLORIDE 1,000 ML IV SCH ×2 (02:49→18:46)
[2020-09-01 07:01] LABS: HEMOGLOBIN 14.1 GM/dL (11.7-16.9); MCH 30.7 pg (25.7-33.7); MCHC 34.4 g/dl (32.0-35.9); MEAN CELL VOLUME 89.4 fl (80-96); MEAN PLT VOLUME 9.2 fl (7.5-11.1); PLATELET COUNT 114 K/MM3 (134-434); RBC 4.59 M/mm3 (4.00-5.60); WHITE BLOOD COUNT 10.8 K/mm3 (4.0-10.0)
[2020-09-01 07:18] LABS: POTASSIUM 4.6 mmol/L (3.5-5.1)
[2020-09-01 07:19] LABS: CALCIUM 8.7 mg/dL (8.5-10.1)
[2020-09-01 07:20] LABS: BLOOD UREA NITROGEN 15.8 mg/dL (7-18)
[2020-09-01 07:23] LABS: CREATININE 1.6 mg/dL (0.55-1.3)
[2020-09-01] MEDS ORDERED: ASPIRIN 81 MG CHEWABLE TABLETS ONE (09:49)
[2020-09-01] MEDS ORDERED: DEXAMETHASONE SOD PHOSPHATE 10 MG/1 ML VIAL ONE (09:49)
[2020-09-01] MEDS ORDERED: ASCORBIC ACID 500 MG TABLET (FP) ONE (09:49)
[2020-09-01] MEDS ORDERED: ACETAMINOPHEN INJECTION 100 ML IVPB ONE (09:50)
[2020-09-01] MEDS ORDERED: ZINC SULFATE 220 MG CAPSULE (FP) ONE (09:50)
[2020-09-01] MEDS ORDERED: PANTOPRAZOLE 40 MG TABLET ONE (09:50)
[2020-09-01] MEDS ORDERED: CHOLECALCIFEROL (VIT D3) 1,000 UNIT (25 MCG) TABLET ONE (09:50)
[2020-09-01] MEDS ORDERED: AZITHROMYCIN IVPB 500 MG/250 ML BAG IVPB ONE (09:51)
[2020-09-01] MEDS ORDERED: ENOXAPARIN NA (PORCINE) 40 MG/0.4 ML DISP.SYRIN SQ ONE (09:51)
[2020-09-01] MEDS ORDERED: CEFTRIAXONE 1 GM/50 ML BAG ONE (09:51)
[2020-09-01] MEDS ORDERED: ENOXAPARIN NA (PORCINE) 40 MG/0.4 ML DISP.SYRIN SQ SCH (10:00)
[2020-09-01] MEDS ORDERED: AZITHROMYCIN IVPB 500 MG/250 ML BAG IVPB SCH (10:00)
[2020-09-01] MEDS: ZINC SULFATE 220 MG CAPSULE (FP) PO SCH ×2 (10:06→21:04)
[2020-09-01] MEDS: DEXAMETHASONE SOD PHOSPHATE 4 MG/1 ML VIAL IVPUSH SCH (10:06)
[2020-09-01] MEDS: PANTOPRAZOLE 40 MG TABLET PO SCH (10:06)
[2020-09-01] MEDS ORDERED: ACETAMINOPHEN 1000 MG/100 ML VIAL (NON FORMULARY) IVPB PRN (10:06)
[2020-09-01] MEDS: ASPIRIN 81 MG CHEWABLE TABLETS PO SCH (10:06)
[2020-09-01] MEDS: ASCORBIC ACID 500 MG TABLET (FP) PO SCH ×2 (10:10→21:04)
[2020-09-01] MEDS: CEFTRIAXONE 1 GM in DEXTROSE 5%-WATER - 50 ML IVPB SCH (10:10)
[2020-09-01] MEDS: CHOLECALCIFEROL (VIT D3) 1,000 UNIT (25 MCG) TABLET PO SCH (10:10)
[2020-09-01 12:01] LABS: BILIRUBIN,DIRECT 0.3 mg/dL (0.0-0.2)
[2020-09-01 12:04] LABS: TOT PROT 6.7 g/dl (6.4-8.2)
[2020-09-01] MEDS ORDERED: REMDESIVIR 200 MG in SODIUM CHLORIDE 210 ML IVPB ONE (13:00)
[2020-09-01] MEDS: ENOXAPARIN NA (PORCINE) 40 MG/0.4 ML DISP.SYRIN SQ SCH (21:04)
[2020-09-02 08:23] LABS: LYMPH % 5.9 % (8-40); MCHC 33.5 g/dl (32.0-35.9); MEAN CELL VOLUME 89.5 fl (80-96); MEAN PLT VOLUME 10.3 fl (7.5-11.1); MONO % 3.2 % (3.8-10.2); NEUT % 90.9 % (42.8-82.8); PLATELET COUNT 147 K/MM3 (134-434); RBC 4.69 M/mm3 (4.00-5.60); WHITE BLOOD COUNT 12.8 K/mm3 (4.0-10.0)
[2020-09-02 08:42] LABS: POTASSIUM 4.2 mmol/L (3.5-5.1)
[2020-09-02 08:49] LABS: ALBUMIN 2.6 g/dl (3.4-5.0)
[2020-09-02 08:50] LABS: BLOOD UREA NITROGEN 18.3 mg/dL (7-18)
[2020-09-02 08:53] LABS: CREATININE 1.2 mg/dL (0.55-1.3)
[2020-09-02 08:54] LABS: BILIRUBIN,TOTAL 0.6 mg/dL (0.2-1); TOT PROT 6.2 g/dl (6.4-8.2)
[2020-09-02 08:57] LABS: CALCIUM 8.4 mg/dL (8.5-10.1)
[2020-09-02] MEDS: CHOLECALCIFEROL (VIT D3) 1,000 UNIT (25 MCG) TABLET PO SCH (09:19)
[2020-09-02] MEDS: ASCORBIC ACID 500 MG TABLET (FP) PO SCH ×2 (09:19→21:38)
[2020-09-02] MEDS: ASPIRIN 81 MG CHEWABLE TABLETS PO SCH (09:19)
[2020-09-02] MEDS: ZINC SULFATE 220 MG CAPSULE (FP) PO SCH ×2 (09:19→21:38)
[2020-09-02] MEDS: DEXAMETHASONE SOD PHOSPHATE 4 MG/1 ML VIAL IVPUSH SCH (09:20)
[2020-09-02] MEDS: ENOXAPARIN NA (PORCINE) 40 MG/0.4 ML DISP.SYRIN SQ SCH ×2 (09:20→21:38)
[2020-09-02] MEDS: PANTOPRAZOLE 40 MG TABLET PO SCH (09:20)
[2020-09-02] MEDS: CEFTRIAXONE 1 GM in DEXTROSE 5%-WATER - 50 ML IVPB SCH (09:23)
[2020-09-02] MEDS: REMDESIVIR 100 MG in SODIUM CHLORIDE 230 ML IVPB SCH (14:27)
[2020-09-02] MEDS: SODIUM CHLORIDE 1,000 ML IV SCH (14:30)
[2020-09-02] MEDS: LACTATED RINGERS SOLUTION 1,000 ML/1,000 ML INFUS.BAG IV SCH (18:10)
[2020-09-02] MEDS: METOPROLOL TARTRATE 25 MG TABLET (FP) PO SCH (21:38)
[2020-09-03] MEDS: LACTATED RINGERS SOLUTION 1,000 ML/1,000 ML INFUS.BAG IV SCH (09:37)
[2020-09-03] MEDS: CEFTRIAXONE 1 GM in DEXTROSE 5%-WATER - 50 ML IVPB SCH (09:38)
[2020-09-03] MEDS: DEXAMETHASONE SOD PHOSPHATE 4 MG/1 ML VIAL IVPUSH SCH (09:39)
[2020-09-03] MEDS: ZINC SULFATE 220 MG CAPSULE (FP) PO SCH ×2 (09:40→21:05)
[2020-09-03] MEDS: ASCORBIC ACID 500 MG TABLET (FP) PO SCH ×2 (09:40→21:05)
[2020-09-03] MEDS: ASPIRIN 81 MG CHEWABLE TABLETS PO SCH (09:40)
[2020-09-03] MEDS: METOPROLOL TARTRATE 25 MG TABLET (FP) PO SCH ×2 (09:40→21:05)
[2020-09-03] MEDS: ENOXAPARIN NA (PORCINE) 40 MG/0.4 ML DISP.SYRIN SQ SCH ×2 (09:40→21:05)
[2020-09-03] MEDS: PANTOPRAZOLE 40 MG TABLET PO SCH (09:40)
[2020-09-03] MEDS: CHOLECALCIFEROL (VIT D3) 1,000 UNIT (25 MCG) TABLET PO SCH (09:40)
[2020-09-03] MEDS: guaiFENesin/D-M SUGAR-FREE/ACLHOL-FREE 118 ML BOTTLE PO PRN ×2 (09:54→13:48)
[2020-09-03 13:29] LABS: BASO % 0.1 % (0-2.0); HEMATOCRIT 40.3 % (35.4-49); HEMOGLOBIN 13.4 GM/dL (11.7-16.9); LYMPH % 2.4 % (8-40); MCH 29.8 pg (25.7-33.7); MCHC 33.3 g/dl (32.0-35.9); MEAN CELL VOLUME 89.5 fl (80-96); MEAN PLT VOLUME 9.7 fl (7.5-11.1); MONO % 3.4 % (3.8-10.2); NEUT % 94.1 % (42.8-82.8); PLATELET COUNT 189 K/MM3 (134-434); RBC 4.51 M/mm3 (4.00-5.60); RDW 14.1 % (11.9-15.9); WHITE BLOOD COUNT 12.8 K/mm3 (4.0-10.0)
[2020-09-03] MEDS: REMDESIVIR 100 MG in SODIUM CHLORIDE 230 ML IVPB SCH (13:43)
[2020-09-03 13:59] LABS: POTASSIUM 4.1 mmol/L (3.5-5.1)
[2020-09-03 14:02] LABS: CALCIUM 8.3 mg/dL (8.5-10.1)
[2020-09-03 14:03] LABS: ALBUMIN 2.5 g/dl (3.4-5.0); BLOOD UREA NITROGEN 20.9 mg/dL (7-18); MAGNESIUM 2.1 mg/dL (1.8-2.4)
[2020-09-03 14:06] LABS: CREATININE 1.2 mg/dL (0.55-1.3)
[2020-09-03 14:07] LABS: BILIRUBIN,TOTAL 0.4 mg/dL (0.2-1); TOT PROT 6.2 g/dl (6.4-8.2)
[2020-09-03 15:06] LABS: ANISOCYTOSIS 0; MACROCYTOSIS 0; PLATELET ESTIMATE NORMAL
[2020-09-04] MEDS: guaiFENesin/D-M SUGAR-FREE/ACLHOL-FREE 118 ML BOTTLE PO PRN ×3 (03:07→21:10)
[2020-09-04 08:49] LABS: BASO % 0.2 % (0-2.0); HEMATOCRIT 38.1 % (35.4-49); HEMOGLOBIN 12.9 GM/dL (11.7-16.9); LYMPH % 6.3 % (8-40); MCHC 33.8 g/dl (32.0-35.9); MEAN CELL VOLUME 88.8 fl (80-96); MEAN PLT VOLUME 10.2 fl (7.5-11.1); NEUT % 89.5 % (42.8-82.8); PLATELET COUNT 247 K/MM3 (134-434); RBC 4.29 M/mm3 (4.00-5.60); RDW 14.2 % (11.9-15.9); WHITE BLOOD COUNT 11.7 K/mm3 (4.0-10.0)
[2020-09-04 09:04] LABS: POTASSIUM 4.3 mmol/L (3.5-5.1)
[2020-09-04 09:13] LABS: ALBUMIN 2.4 g/dl (3.4-5.0)
[2020-09-04 09:14] LABS: BLOOD UREA NITROGEN 19.4 mg/dL (7-18); MAGNESIUM 2.1 mg/dL (1.8-2.4)
[2020-09-04 09:16] LABS: BILIRUBIN,TOTAL 0.6 mg/dL (0.2-1)
[2020-09-04 09:17] LABS: CREATININE 1.3 mg/dL (0.55-1.3); PHOSPHOROUS 3.8 mg/dL (2.5-4.9); TOT PROT 5.6 g/dl (6.4-8.2)
[2020-09-04] MEDS: CEFTRIAXONE 1 GM in DEXTROSE 5%-WATER - 50 ML IVPB SCH (10:15)
[2020-09-04] MEDS: ENOXAPARIN NA (PORCINE) 40 MG/0.4 ML DISP.SYRIN SQ SCH ×2 (10:15→21:09)
[2020-09-04] MEDS: DEXAMETHASONE SOD PHOSPHATE 4 MG/1 ML VIAL IVPUSH SCH (10:16)
[2020-09-04] MEDS: ASPIRIN 81 MG CHEWABLE TABLETS PO SCH (10:17)
[2020-09-04] MEDS: ASCORBIC ACID 500 MG TABLET (FP) PO SCH ×2 (10:17→21:10)
[2020-09-04] MEDS: CHOLECALCIFEROL (VIT D3) 1,000 UNIT (25 MCG) TABLET PO SCH (10:17)
[2020-09-04] MEDS: ZINC SULFATE 220 MG CAPSULE (FP) PO SCH ×2 (10:17→21:10)
[2020-09-04] MEDS: PANTOPRAZOLE 40 MG TABLET PO SCH (10:17)
[2020-09-04] MEDS: METOPROLOL TARTRATE 25 MG TABLET (FP) PO SCH ×2 (10:17→21:09)
[2020-09-04] MEDS: REMDESIVIR 100 MG in SODIUM CHLORIDE 230 ML IVPB SCH (13:12)
[2020-09-05 09:18] LABS: POTASSIUM 4.2 mmol/L (3.5-5.1)
[2020-09-05 09:22] LABS: CALCIUM 8.6 mg/dL (8.5-10.1)
[2020-09-05 09:23] LABS: ALBUMIN 2.5 g/dl (3.4-5.0); BLOOD UREA NITROGEN 19.4 mg/dL (7-18); MAGNESIUM 2.2 mg/dL (1.8-2.4)
[2020-09-05 09:25] LABS: BASO % 0.1 % (0-2.0); HEMATOCRIT 41.7 % (35.4-49); HEMOGLOBIN 14.2 GM/dL (11.7-16.9); LYMPH % 8.5 % (8-40); MCH 30.4 pg (25.7-33.7); MEAN CELL VOLUME 89.4 fl (80-96); MEAN PLT VOLUME 9.6 fl (7.5-11.1); MONO % 4.1 % (3.8-10.2); NEUT % 87.3 % (42.8-82.8); PLATELET COUNT 304 K/MM3 (134-434); RBC 4.66 M/mm3 (4.00-5.60); RDW 13.8 % (11.9-15.9); WHITE BLOOD COUNT 10.3 K/mm3 (4.0-10.0)
[2020-09-05 09:26] LABS: CREATININE 1.2 mg/dL (0.55-1.3); PHOSPHOROUS 3.2 mg/dL (2.5-4.9)
[2020-09-05 09:27] LABS: BILIRUBIN,TOTAL 0.9 mg/dL (0.2-1)
[2020-09-05] MEDS: ENOXAPARIN NA (PORCINE) 40 MG/0.4 ML DISP.SYRIN SQ SCH ×2 (10:22→21:39)
[2020-09-05] MEDS: CEFTRIAXONE 1 GM in DEXTROSE 5%-WATER - 50 ML IVPB SCH (10:23)
[2020-09-05] MEDS: PANTOPRAZOLE 40 MG TABLET PO SCH (10:24)
[2020-09-05] MEDS: CHOLECALCIFEROL (VIT D3) 1,000 UNIT (25 MCG) TABLET PO SCH (10:24)
[2020-09-05] MEDS: METOPROLOL TARTRATE 25 MG TABLET (FP) PO SCH ×2 (10:24→21:39)
[2020-09-05] MEDS: ASPIRIN 81 MG CHEWABLE TABLETS PO SCH (10:24)
[2020-09-05] MEDS: DEXAMETHASONE SOD PHOSPHATE 4 MG/1 ML VIAL IVPUSH SCH (10:24)
[2020-09-05] MEDS: ASCORBIC ACID 500 MG TABLET (FP) PO SCH ×2 (10:24→21:39)
[2020-09-05] MEDS: ZINC SULFATE 220 MG CAPSULE (FP) PO SCH ×2 (10:25→21:39)
[2020-09-05] MEDS: REMDESIVIR 100 MG in SODIUM CHLORIDE 230 ML IVPB SCH (13:21)
[2020-09-05] MEDS: guaiFENesin/D-M SUGAR-FREE/ACLHOL-FREE 118 ML BOTTLE PO PRN ×2 (17:56→20:45)
[2020-09-06] MEDS: guaiFENesin/D-M SUGAR-FREE/ACLHOL-FREE 118 ML BOTTLE PO PRN (05:53)
[2020-09-06 08:52] LABS: BASO % 0.6 % (0-2.0); HEMATOCRIT 38.4 % (35.4-49); LYMPH % 8.6 % (8-40); MCH 30.2 pg (25.7-33.7); MCHC 33.9 g/dl (32.0-35.9); MEAN CELL VOLUME 89.2 fl (80-96); MEAN PLT VOLUME 9.7 fl (7.5-11.1); MONO % 5.1 % (3.8-10.2); NEUT % 85.7 % (42.8-82.8); PLATELET COUNT 321 K/MM3 (134-434); RBC 4.31 M/mm3 (4.00-5.60); RDW 14.1 % (11.9-15.9)
[2020-09-06 09:14] LABS: POTASSIUM 4.3 mmol/L (3.5-5.1)
[2020-09-06 09:16] LABS: CALCIUM 8.4 mg/dL (8.5-10.1)
[2020-09-06 09:17] LABS: ALBUMIN 2.2 g/dl (3.4-5.0); BLOOD UREA NITROGEN 19.7 mg/dL (7-18); MAGNESIUM 2.2 mg/dL (1.8-2.4)
[2020-09-06 09:20] LABS: CREATININE 1.1 mg/dL (0.55-1.3); PHOSPHOROUS 3.4 mg/dL (2.5-4.9)
[2020-09-06 09:21] LABS: BILIRUBIN,TOTAL 1.3 mg/dL (0.2-1); TOT PROT 5.4 g/dl (6.4-8.2)
[2020-09-06] MEDS: ZINC SULFATE 220 MG CAPSULE (FP) PO SCH ×2 (09:45→22:54)
[2020-09-06] MEDS: PANTOPRAZOLE 40 MG TABLET PO SCH (09:45)
[2020-09-06] MEDS: METOPROLOL TARTRATE 25 MG TABLET (FP) PO SCH ×2 (09:45→22:53)
[2020-09-06] MEDS: ASPIRIN 81 MG CHEWABLE TABLETS PO SCH (09:45)
[2020-09-06] MEDS: CHOLECALCIFEROL (VIT D3) 1,000 UNIT (25 MCG) TABLET PO SCH (09:45)
[2020-09-06] MEDS: CEFTRIAXONE 1 GM in DEXTROSE 5%-WATER - 50 ML IVPB SCH (09:46)
[2020-09-06] MEDS: ASCORBIC ACID 500 MG TABLET (FP) PO SCH ×2 (09:46→22:54)
[2020-09-06] MEDS: DEXAMETHASONE SOD PHOSPHATE 4 MG/1 ML VIAL IVPUSH SCH (09:46)
[2020-09-06] MEDS: ENOXAPARIN NA (PORCINE) 40 MG/0.4 ML DISP.SYRIN SQ SCH ×2 (09:50→22:53)
[2020-09-07] MEDS: guaiFENesin/D-M SUGAR-FREE/ACLHOL-FREE 118 ML BOTTLE PO PRN ×3 (00:04→22:42)
[2020-09-07 11:27] LABS: BASO % 0.3 % (0-2.0); HEMATOCRIT 40.2 % (35.4-49); HEMOGLOBIN 13.5 GM/dL (11.7-16.9); LYMPH % 7.7 % (8-40); MCH 29.9 pg (25.7-33.7); MCHC 33.6 g/dl (32.0-35.9); MEAN CELL VOLUME 89.1 fl (80-96); PLATELET COUNT 392 K/MM3 (134-434); RBC 4.51 M/mm3 (4.00-5.60); RDW 14.4 % (11.9-15.9); WHITE BLOOD COUNT 10.4 K/mm3 (4.0-10.0)
[2020-09-07] MEDS: METOPROLOL TARTRATE 25 MG TABLET (FP) PO SCH ×2 (11:32→22:41)
[2020-09-07] MEDS: PANTOPRAZOLE 40 MG TABLET PO SCH (11:32)
[2020-09-07] MEDS: ASPIRIN 81 MG CHEWABLE TABLETS PO SCH (11:32)
[2020-09-07] MEDS: CHOLECALCIFEROL (VIT D3) 1,000 UNIT (25 MCG) TABLET PO SCH (11:32)
[2020-09-07] MEDS: ZINC SULFATE 220 MG CAPSULE (FP) PO SCH ×2 (11:32→22:41)
[2020-09-07] MEDS: ASCORBIC ACID 500 MG TABLET (FP) PO SCH ×2 (11:32→22:41)
[2020-09-07] MEDS: ENOXAPARIN NA (PORCINE) 40 MG/0.4 ML DISP.SYRIN SQ SCH ×2 (11:34→22:41)
[2020-09-07] MEDS: DEXAMETHASONE SOD PHOSPHATE 4 MG/1 ML VIAL IVPUSH SCH (11:34)
[2020-09-07 11:50] LABS: POTASSIUM 4.2 mmol/L (3.5-5.1)
[2020-09-07 12:02] LABS: ALBUMIN 2.2 g/dl (3.4-5.0); BILIRUBIN,TOTAL 0.7 mg/dL (0.2-1); BLOOD UREA NITROGEN 23.6 mg/dL (7-18)
[2020-09-07 12:04] LABS: CREATININE 1.2 mg/dL (0.55-1.3); PHOSPHOROUS 3.8 mg/dL (2.5-4.9)
[2020-09-07 12:05] LABS: CALCIUM 8.4 mg/dL (8.5-10.1); MAGNESIUM 2.2 mg/dL (1.8-2.4)
[2020-09-07 12:13] LABS: TOT PROT 5.8 g/dl (6.4-8.2)
[2020-09-07] MEDS: MENTHOL/PHENOL 1 EACH UD MM PRN (22:42)
[2020-09-08 08:25] LABS: BASO % 0.4 % (0-2.0); HEMATOCRIT 39.9 % (35.4-49); HEMOGLOBIN 13.6 GM/dL (11.7-16.9); LYMPH % 7.7 % (8-40); MCH 30.5 pg (25.7-33.7); MCHC 34.1 g/dl (32.0-35.9); MEAN CELL VOLUME 89.3 fl (80-96); MONO % 6.1 % (3.8-10.2); NEUT % 85.8 % (42.8-82.8); PLATELET COUNT 398 K/MM3 (134-434); RBC 4.47 M/mm3 (4.00-5.60); WHITE BLOOD COUNT 10.3 K/mm3 (4.0-10.0)
[2020-09-08 09:00] LABS: ALBUMIN 2.2 g/dl (3.4-5.0); BLOOD UREA NITROGEN 19.4 mg/dL (7-18); CALCIUM 8.6 mg/dL (8.5-10.1); MAGNESIUM 2.4 mg/dL (1.8-2.4)
[2020-09-08 09:02] LABS: CREATININE 1.3 mg/dL (0.55-1.3)
[2020-09-08 09:03] LABS: PHOSPHOROUS 3.9 mg/dL (2.5-4.9)
[2020-09-08 09:04] LABS: BILIRUBIN,TOTAL 0.6 mg/dL (0.2-1); TOT PROT 5.8 g/dl (6.4-8.2)
[2020-09-08] MEDS: guaiFENesin/D-M SUGAR-FREE/ACLHOL-FREE 118 ML BOTTLE PO PRN ×2 (09:13→21:52)
[2020-09-08] MEDS: ASCORBIC ACID 500 MG TABLET (FP) PO SCH ×2 (09:14→21:24)
[2020-09-08] MEDS: CHOLECALCIFEROL (VIT D3) 1,000 UNIT (25 MCG) TABLET PO SCH (09:14)
[2020-09-08] MEDS: ZINC SULFATE 220 MG CAPSULE (FP) PO SCH ×2 (09:14→21:24)
[2020-09-08] MEDS: DEXAMETHASONE SOD PHOSPHATE 4 MG/1 ML VIAL IVPUSH SCH (09:14)
[2020-09-08] MEDS: METOPROLOL TARTRATE 25 MG TABLET (FP) PO SCH ×2 (09:15→21:24)
[2020-09-08] MEDS: ASPIRIN 81 MG CHEWABLE TABLETS PO SCH (09:15)
[2020-09-08] MEDS: PANTOPRAZOLE 40 MG TABLET PO SCH (09:15)
[2020-09-08] MEDS: MENTHOL/PHENOL 1 EACH UD MM PRN ×2 (09:16→21:52)
[2020-09-08] MEDS: ENOXAPARIN NA (PORCINE) 40 MG/0.4 ML DISP.SYRIN SQ SCH ×2 (09:29→21:23)
[2020-09-09 08:27] LABS: BASO % 0.3 % (0-2.0); HEMATOCRIT 42.1 % (35.4-49); LYMPH % 9.1 % (8-40); MCH 30.1 pg (25.7-33.7); MCHC 33.3 g/dl (32.0-35.9); MEAN CELL VOLUME 90.3 fl (80-96); MEAN PLT VOLUME 9.4 fl (7.5-11.1); MONO % 5.6 % (3.8-10.2); PLATELET COUNT 449 K/MM3 (134-434); RBC 4.66 M/mm3 (4.00-5.60); RDW 14.6 % (11.9-15.9); WHITE BLOOD COUNT 11.8 K/mm3 (4.0-10.0)
[2020-09-09 08:43] LABS: POTASSIUM 4.3 mmol/L (3.5-5.1)
[2020-09-09 08:46] LABS: ALBUMIN 2.4 g/dl (3.4-5.0); CALCIUM 8.5 mg/dL (8.5-10.1)
[2020-09-09 08:47] LABS: MAGNESIUM 2.3 mg/dL (1.8-2.4)
[2020-09-09 08:50] LABS: CREATININE 1.2 mg/dL (0.55-1.3); PHOSPHOROUS 3.6 mg/dL (2.5-4.9)
[2020-09-09 08:52] LABS: BILIRUBIN,TOTAL 1.3 mg/dL (0.2-1); TOT PROT 6.2 g/dl (6.4-8.2)
[2020-09-09] MEDS: PANTOPRAZOLE 40 MG TABLET PO SCH (08:59)
[2020-09-09] MEDS: METOPROLOL TARTRATE 25 MG TABLET (FP) PO SCH ×2 (08:59→21:55)
[2020-09-09] MEDS: ASPIRIN 81 MG CHEWABLE TABLETS PO SCH (08:59)
[2020-09-09] MEDS: DEXAMETHASONE SOD PHOSPHATE 4 MG/1 ML VIAL IVPUSH SCH (08:59)
[2020-09-09] MEDS: MENTHOL/PHENOL 1 EACH UD MM PRN (09:00)
[2020-09-09] MEDS: ASCORBIC ACID 500 MG TABLET (FP) PO SCH ×2 (09:00→21:55)
[2020-09-09] MEDS: ZINC SULFATE 220 MG CAPSULE (FP) PO SCH ×2 (09:00→21:55)
[2020-09-09] MEDS: CHOLECALCIFEROL (VIT D3) 1,000 UNIT (25 MCG) TABLET PO SCH (09:00)
[2020-09-09] MEDS: ENOXAPARIN NA (PORCINE) 40 MG/0.4 ML DISP.SYRIN SQ SCH ×2 (09:02→21:55)
[2020-09-09] MEDS: guaiFENesin/D-M SUGAR-FREE/ACLHOL-FREE 118 ML BOTTLE PO PRN ×2 (09:07→22:57)
[2020-09-09 10:00] LABS: ANISOCYTOSIS 1+; MACROCYTOSIS 1+; PLATELET ESTIMATE NORMAL
[2020-09-10 08:45] LABS: HEMATOCRIT 41.7 % (35.4-49); HEMOGLOBIN 13.9 GM/dL (11.7-16.9); MCH 29.9 pg (25.7-33.7); MCHC 33.4 g/dl (32.0-35.9); MEAN CELL VOLUME 89.5 fl (80-96); MEAN PLT VOLUME 8.8 fl (7.5-11.1); PLATELET COUNT 398 K/MM3 (134-434); RBC 4.65 M/mm3 (4.00-5.60); RDW 14.5 % (11.9-15.9); WHITE BLOOD COUNT 10.7 K/mm3 (4.0-10.0)
[2020-09-10 09:06] LABS: POTASSIUM 4.3 mmol/L (3.5-5.1)
[2020-09-10 09:10] LABS: ALBUMIN 2.4 g/dl (3.4-5.0); CALCIUM 8.5 mg/dL (8.5-10.1)
[2020-09-10 09:11] LABS: MAGNESIUM 2.3 mg/dL (1.8-2.4)
[2020-09-10 09:13] LABS: CREATININE 1.3 mg/dL (0.55-1.3)
[2020-09-10 09:14] LABS: PHOSPHOROUS 3.6 mg/dL (2.5-4.9)
[2020-09-10 09:15] LABS: BILIRUBIN,TOTAL 0.7 mg/dL (0.2-1); TOT PROT 6.1 g/dl (6.4-8.2)
[2020-09-10] MEDS: PANTOPRAZOLE 40 MG TABLET PO SCH (10:14)
[2020-09-10] MEDS: DEXAMETHASONE SOD PHOSPHATE 4 MG/1 ML VIAL IVPUSH SCH (10:15)
[2020-09-10] MEDS: METOPROLOL TARTRATE 25 MG TABLET (FP) PO SCH ×2 (10:15→21:00)
[2020-09-10] MEDS: ASPIRIN 81 MG CHEWABLE TABLETS PO SCH (10:15)
[2020-09-10] MEDS: ENOXAPARIN NA (PORCINE) 40 MG/0.4 ML DISP.SYRIN SQ SCH ×2 (10:15→21:00)
[2020-09-10] MEDS: CHOLECALCIFEROL (VIT D3) 1,000 UNIT (25 MCG) TABLET PO SCH (10:15)
[2020-09-10] MEDS: ASCORBIC ACID 500 MG TABLET (FP) PO SCH ×2 (10:15→21:02)
[2020-09-10] MEDS: ZINC SULFATE 220 MG CAPSULE (FP) PO SCH ×2 (10:15→21:00)
[2020-09-10] MEDS: guaiFENesin/D-M SUGAR-FREE/ACLHOL-FREE 118 ML BOTTLE PO PRN (23:29)
[2020-09-11 10:16] LABS: HEMATOCRIT 40.7 % (35.4-49); HEMOGLOBIN 13.4 GM/dL (11.7-16.9); MCH 29.6 pg (25.7-33.7); MCHC 32.9 g/dl (32.0-35.9); MEAN CELL VOLUME 89.9 fl (80-96); MEAN PLT VOLUME 8.9 fl (7.5-11.1); PLATELET COUNT 379 K/MM3 (134-434); RBC 4.53 M/mm3 (4.00-5.60); RDW 14.4 % (11.9-15.9); WHITE BLOOD COUNT 9.9 K/mm3 (4.0-10.0)
[2020-09-11] MEDS: PANTOPRAZOLE 40 MG TABLET PO SCH (10:21)
[2020-09-11] MEDS: ENOXAPARIN NA (PORCINE) 40 MG/0.4 ML DISP.SYRIN SQ SCH ×2 (10:21→22:13)
[2020-09-11] MEDS: DEXAMETHASONE SOD PHOSPHATE 4 MG/1 ML VIAL IVPUSH SCH (10:21)
[2020-09-11] MEDS: METOPROLOL TARTRATE 25 MG TABLET (FP) PO SCH ×2 (10:21→22:13)
[2020-09-11] MEDS: ASCORBIC ACID 500 MG TABLET (FP) PO SCH ×2 (10:21→22:14)
[2020-09-11] MEDS: CHOLECALCIFEROL (VIT D3) 1,000 UNIT (25 MCG) TABLET PO SCH (10:21)
[2020-09-11] MEDS: ZINC SULFATE 220 MG CAPSULE (FP) PO SCH ×2 (10:21→22:13)
[2020-09-11] MEDS: ASPIRIN 81 MG CHEWABLE TABLETS PO SCH (10:22)
[2020-09-11] MEDS: MENTHOL/PHENOL 1 EACH UD MM PRN (10:23)
[2020-09-11 10:36] LABS: POTASSIUM 4.4 mmol/L (3.5-5.1)
[2020-09-11 10:40] LABS: BLOOD UREA NITROGEN 24.3 mg/dL (7-18)
[2020-09-11 10:43] LABS: CREATININE 1.3 mg/dL (0.55-1.3)
[2020-09-11 10:44] LABS: CALCIUM 8.5 mg/dL (8.5-10.1)
[2020-09-11 10:46] LABS: MAGNESIUM 2.3 mg/dL (1.8-2.4)
[2020-09-12] MEDS: METOPROLOL TARTRATE 25 MG TABLET (FP) PO SCH (11:02)
[2020-09-12] MEDS: ZINC SULFATE 220 MG CAPSULE (FP) PO SCH (11:02)
[2020-09-12] MEDS: ASCORBIC ACID 500 MG TABLET (FP) PO SCH (11:02)
[2020-09-12] MEDS: CHOLECALCIFEROL (VIT D3) 1,000 UNIT (25 MCG) TABLET PO SCH (11:02)
[2020-09-12] MEDS: ASPIRIN 81 MG CHEWABLE TABLETS PO SCH (11:02)
[2020-09-12] MEDS: PANTOPRAZOLE 40 MG TABLET PO SCH (11:02)
[2020-09-12] MEDS: ENOXAPARIN NA (PORCINE) 40 MG/0.4 ML DISP.SYRIN SQ SCH (11:02)
[2020-09-12] MEDS: DEXAMETHASONE SOD PHOSPHATE 4 MG/1 ML VIAL IVPUSH SCH (11:03)
[2020-09-12 12:08] VITALS: BP 128/84; PULSE 60; TEMP 98.1
[2020-09-12] MEDS ORDERED: APIXABAN 5 MG TABLET PO SCH (17:00)
== END 2020-09-12 18:16 | disposition home or self-care (01) | DRG 177 ==
LOC: JER 21:07 → JERBED 09-01 01:52 → J5WEST-2 09-01 11:26 → J5S 09-07 08:40 → J5WEST-2 09-07 08:41 → J6WEST-2 09-08 15:18 → JICU-6 09-08 16:38 → J6WEST-2 09-08 16:41 → J5WEST-2 09-09 16:18
PROVIDERS: ADMIT Hospitalist; ATTEND Internal Medicine
PROC: XW033E5 Introduction of Remdesivir Anti-infective into Peripheral Vein, Percutaneous Approach, New Technology Group 5 (ICD-10-PCS; principal; 2020-09-01)
DX: U07.1 COVID-19 (principal); J12.82 Pneumonia due to coronavirus disease 2019; J96.01 Acute respiratory failure with hypoxia; N17.9 Acute kidney failure, unspecified; E87.2 Acidosis; E78.5 Hyperlipidemia, unspecified; I48.0 Paroxysmal atrial fibrillation; M10.9 Gout, unspecified; I10 Essential (primary) hypertension; I12.9 Hypertensive chronic kidney disease with stage 1 through stage 4 chronic kidney disease, or unspecified chronic kidney disease; N18.9 Chronic kidney disease, unspecified; R50.9 Fever, unspecified; M54.9 Dorsalgia, unspecified; H92.01 Otalgia, right ear; R05 Cough; E66.9 Obesity, unspecified; Z68.30 Body mass index [BMI] 30.0-30.9, adult; R00.2 Palpitations
CPT/HCPCS: 36415; 71045-TC-FY; 80048; 80053; 80076; 81003; 82248; 82550; 82553; 82728; 82803; 83605; 83615; 83735; 84100; 84484; 85025; 85027; 85379; 85610; 85730; 86140; 87040; 87086; 87804; 93005; 93010; 93306-TC; 94010; 94761; 99285-25; C9399; C9803; J0131; U0003

== ENCOUNTER 2021-01-24 08:30 | Emergency (ER) | payer OTHER ==
[2021-01-24 08:40] VITALS: BMI 27.2
[2021-01-24] MEDS ORDERED: ACETAMINOPHEN 500 MG TABLET (FP) PO ONE (09:02)
[2021-01-24] MEDS ORDERED: ACETAMINOPHEN 500 MG TABLET (FP) ONE (09:33)
[2021-01-24 10:11] LABS: BASO % 0.4 % (0-2.0); HEMATOCRIT 46.4 % (35.4-49); HEMOGLOBIN 15.2 GM/dL (11.7-16.9); LYMPH % 11.8 % (8-40); MCHC 32.8 g/dl (32.0-35.9); MEAN CELL VOLUME 85.6 fl (80-96); MEAN PLT VOLUME 10.2 fl (7.5-11.1); MONO % 6.6 % (3.8-10.2); NEUT % 81.2 % (42.8-82.8); PLATELET COUNT 130 10^3/uL (134-434); RBC 5.42 M/mm3 (4.00-5.60); RDW 14.3 % (11.9-15.9); WHITE BLOOD COUNT 10.6 K/mm3 (4.0-10.0)
[2021-01-24 10:31] LABS: CALCIUM 9.1 mg/dL (8.5-10.1)
[2021-01-24 10:32] LABS: BLOOD UREA NITROGEN 19.6 mg/dL (7-18)
[2021-01-24 10:35] LABS: CREATININE 1.5 mg/dL (0.55-1.3)
[2021-01-24 10:36] LABS: TOT PROT 7.6 g/dl (6.4-8.2)
[2021-01-24 11:06] LABS: BILIRUBIN,TOTAL 0.9 mg/dL (0.2-1)
[2021-01-24 12:10] LABS: EPI CELLS 3 /uL (0-25.1); HYALINE CASTS 0 /uL (0-3.1); PH,URINE 5.5 (5.0-8.0); URINE APPEARANCE CLEAR; URINE BACTERIA 3 /uL (0-1359); URINE BILIRUBIN NEGATIVE (NEGATIVE); URINE COLOR YELLOW; URINE GLUCOSE (UA) NEGATIVE (NEGATIVE); URINE KETONE NEGATIVE (NEGATIVE); URINE LEUK ESTERASE NEGATIVE (NEGATIVE); URINE NITRITE NEGATIVE (NEGATIVE); URINE PROTEIN 1+ (NEGATIVE); URINE RBC 2 /uL (0-23.9); URINE UROBILINOGEN 0.2 mg/dL (0.2-1.0); URINE WBC 3 /uL (0-25.8)
[2021-01-24 12:21] VITALS: BP 101/67; PULSE 76; TEMP 99.5
== END 2021-01-24 12:50 | disposition home or self-care (01) ==
LOC: JER 08:30
DX: R50.9 Fever, unspecified (principal)
CPT/HCPCS: 36415; 71046-TC-FY; 73030-TC-RT-FY; 80053; 81003; 85025; 99285-25; C9803; U0003; U0005

== ENCOUNTER 2021-01-25 20:02 | Emergency (ER) | payer OTHER ==
[2021-01-25 20:10] VITALS: BMI 30.4
[2021-01-25 21:09] VITALS: TEMP 98.7
[2021-01-25 22:10] LABS: BASO % 0.4 % (0-2.0); EOS % 0.8 % (0-4.5); HEMATOCRIT 45.6 % (35.4-49); HEMOGLOBIN 15.1 GM/dL (11.7-16.9); LYMPH % 30.5 % (8-40); MCH 28.3 pg (25.7-33.7); MCHC 33.2 g/dl (32.0-35.9); MEAN CELL VOLUME 85.3 fl (80-96); MONO % 13.1 % (3.8-10.2); NEUT % 55.2 % (42.8-82.8); PLATELET COUNT 131 10^3/uL (134-434); RBC 5.35 M/mm3 (4.00-5.60); RDW 14.1 % (11.9-15.9); WHITE BLOOD COUNT 8.4 K/mm3 (4.0-10.0)
[2021-01-25 22:21] LABS: INR 0.99 (0.83-1.09)
[2021-01-25 22:25] LABS: URINE APPEARANCE CLEAR; URINE BILIRUBIN NEGATIVE (NEGATIVE); URINE COLOR YELLOW; URINE GLUCOSE (UA) NEGATIVE (NEGATIVE); URINE KETONE NEGATIVE (NEGATIVE); URINE LEUK ESTERASE NEGATIVE (NEGATIVE); URINE NITRITE NEGATIVE (NEGATIVE); URINE PROTEIN TRACE (NEGATIVE)
[2021-01-25 22:33] LABS: ALBUMIN 4.1 g/dl (3.4-5.0); BLOOD UREA NITROGEN 26.3 mg/dL (7-18); CALCIUM 9.2 mg/dL (8.5-10.1)
[2021-01-25 22:36] LABS: CREATININE 1.6 mg/dL (0.55-1.3)
[2021-01-25 22:38] LABS: BILIRUBIN,TOTAL 0.4 mg/dL (0.2-1); TOT PROT 8.1 g/dl (6.4-8.2)
[2021-01-25] MEDS ORDERED: CEPHALEXIN MONOHYDRATE 500 MG CAPSULE (UD) PO ONE (23:16)
[2021-01-25] MEDS ORDERED: SULFAMETHOXAZOLE/TRIMETHOPRIM 800MG/160MG D.S. TABLET PO ONE (23:16)
[2021-01-25 23:18] VITALS: BP 107/71; PULSE 60
[2021-01-25] MEDS ORDERED: CEPHALEXIN MONOHYDRATE 500 MG CAPSULE (UD) ONE (23:21)
[2021-01-25] MEDS ORDERED: SULFAMETHOXAZOLE/TRIMETHOPRIM 800MG/160MG D.S. TABLET ONE (23:21)
== END 2021-01-26 00:04 | disposition home or self-care (01) ==
LOC: JER 20:02
DX: L03.116 Cellulitis of left lower limb (principal)
CPT/HCPCS: 36415; 80053; 81003; 85025; 85610; 85730; 87040; 93005; 93010; 93971-TC; 99285-25

== ENCOUNTER 2021-06-20 09:48 | Emergency (ER) | payer OTHER ==
[2021-06-20 11:17] VITALS: BP 110/74; PULSE 98; TEMP 100.4; BMI 29.0
[2021-06-20] MEDS ORDERED: IBUPROFEN 600 MG TABLET (FP) PO ONE ×2 (11:55→13:15)
== END 2021-06-20 14:33 | disposition home or self-care (01) ==
LOC: JER 09:48
DX: J06.9 Acute upper respiratory infection, unspecified (principal)
CPT/HCPCS: 87804; 99283-25; C9803; U0003; U0005

== ENCOUNTER 2022-09-26 18:57 | Emergency (ER) | payer OTHER ==
[2022-09-26 19:08] VITALS: BP 110/80; PULSE 86; RESP 16; TEMP 97.9; BMI 30.4
[2022-09-26] MEDS ORDERED: ACETAMINOPHEN 1000 MG/100 ML BAG IVPB ONE (20:58)
[2022-09-26] MEDS ORDERED: ACETAMINOPHEN INJECTION 100 ML IVPB ONE (21:21)
[2022-09-26 21:44] LABS: BASO % 0.5 % (0-2.0); EOS % 0.7 % (0-4.5); HEMATOCRIT 46.5 % (35.4-49); HEMOGLOBIN 16.1 GM/dL (11.7-16.9); LYMPH % 41.1 % (8-40); MCH 31.8 pg (25.7-33.7); MCHC 34.7 g/dl (32.0-35.9); MEAN CELL VOLUME 91.8 fl (80-96); MEAN PLT VOLUME 9.5 fl (7.5-11.1); MONO % 12.1 % (3.8-10.2); NEUT % 45.6 % (42.8-82.8); PH,URINE 5.5 (5.0-8.0); PLATELET COUNT 168 10^3/uL (134-434); RBC 5.06 M/mm3 (4.00-5.60); RDW 12.9 % (11.9-15.9); URINE APPEARANCE CLEAR; URINE BILIRUBIN NEGATIVE (NEGATIVE); URINE COLOR YELLOW; URINE GLUCOSE (UA) NEGATIVE (NEGATIVE); URINE KETONE NEGATIVE (NEGATIVE); URINE LEUK ESTERASE NEGATIVE (NEGATIVE); URINE NITRITE NEGATIVE (NEGATIVE); URINE PROTEIN NEGATIVE (NEGATIVE); URINE UROBILINOGEN 0.2 mg/dL (0.2-1.0); WHITE BLOOD COUNT 6.2 K/mm3 (4.0-10.0)
[2022-09-26 21:51] LABS: INR 1.16 (0.83-1.09); PROTHROMBIN TIME (PATIENT) 13.4 SEC (9.7-13.0)
[2022-09-26 21:57] LABS: CHLORIDE 104 mmol/L (98-107); SODIUM 137 mmol/L (136-145)
[2022-09-26 22:01] LABS: CALCIUM 9.3 mg/dL (8.5-10.1)
[2022-09-26 22:02] LABS: ANION GAP 7 MMOL/L (8-16); BLOOD UREA NITROGEN 23.5 mg/dL (7-18); CO2 26 mmol/L (21-32); GLUCOSE,RANDOM 96 mg/dL (74-106); MAGNESIUM 2.1 mg/dL (1.8-2.4)
[2022-09-26 22:05] LABS: CREATININE 1.4 mg/dL (0.55-1.3); SGOT/AST 26 U/L (15-37); SGPT/ALT 38 U/L (13-61)
[2022-09-26 22:06] LABS: BILIRUBIN,TOTAL 0.4 mg/dL (0.2-1); TOT PROT 7.7 g/dl (6.4-8.2)
[2022-09-26 22:08] LABS: ALK PHOS 59 U/L (45-117)
[2022-09-26] MEDS ORDERED: ACYCLOVIR 400 MG TABLET PO ONE (23:42)
[2022-09-26] MEDS ORDERED: DEXAMETHASONE SOD PHOSPHATE 10 MG/1 ML VIAL IVPUSH ONE (23:42)
[2022-09-26] MEDS ORDERED: ACYCLOVIR 200 MG CAPSULE ONE (23:49)
[2022-09-26] MEDS ORDERED: DEXAMETHASONE SOD PHOSPHATE 10 MG/1 ML VIAL ONE (23:49)
== END 2022-09-27 | disposition home or self-care (01) ==
LOC: JER 18:57
PROC: 3E033GC Introduction of Other Therapeutic Substance into Peripheral Vein, Percutaneous Approach (ICD-10-PCS; principal; 2022-09-26)
DX: B02.9 Zoster without complications (principal)
CPT/HCPCS: 36415; 71046-TC-FY; 74177-TC; 80053; 81003; 82550; 82553; 83605; 83735; 84484; 85025; 85610; 87086; 93005; 93010; 99285-25; J1100; Q9967

== ENCOUNTER 2023-12-01 11:56 | Emergency (ER) | payer OTHER ==
[2023-12-01 12:04] VITALS: TEMP 98.2; BMI 30.7
[2023-12-01 13:40] LABS: BASO % 0.5 % (0-2.0); EOS % 0.7 % (0-4.5); HEMATOCRIT 44.4 % (35.4-49); HEMOGLOBIN 15.4 GM/dL (11.7-16.9); LYMPH % 40.3 % (8-40); MCH 30.6 pg (25.7-33.7); MCHC 34.6 g/dl (32.0-35.9); MEAN CELL VOLUME 88.5 fl (80-96); MEAN PLT VOLUME 8.9 fl (7.5-11.1); MONO % 12.2 % (3.8-10.2); NEUT % 46.3 % (42.8-82.8); PLATELET COUNT 164 10^3/uL (134-434); RBC 5.02 M/mm3 (4.00-5.60); RDW 13.4 % (11.9-15.9)
[2023-12-01 13:46] LABS: INR 1.22 (0.83-1.09); PROTHROMBIN TIME (PATIENT) 13.7 SEC (9.7-13.0)
[2023-12-01 14:02] LABS: POTASSIUM 4.1 mmol/L (3.5-5.1)
[2023-12-01 14:03] LABS: CALCIUM 9.4 mg/dL (8.5-10.1)
[2023-12-01 14:04] LABS: ALBUMIN 3.8 g/dl (3.4-5.0); BLOOD UREA NITROGEN 25.7 mg/dL (7-18)
[2023-12-01 14:09] LABS: BILIRUBIN,TOTAL 0.6 mg/dL (0.2-1)
[2023-12-01 14:18] LABS: CREATININE 1.3 mg/dL (0.55-1.3)
[2023-12-01 14:44] VITALS: BP 103/83; PULSE 87; RESP 16
== END 2023-12-01 14:43 | disposition home or self-care (01) ==
LOC: JER 11:56
DX: H92.01 Otalgia, right ear (principal); H66.91 Otitis media, unspecified, right ear; R07.89 Other chest pain; R42 Dizziness and giddiness
CPT/HCPCS: 36415; 71045-TC-FY; 80053; 84484; 85025; 85610; 85730; 86850; 86900; 86901; 93005; 93010; 99285-25